=== PATIENT | female | born 1995 | race Hispanic/Latino ===

== ENCOUNTER 2021-03-24 21:20 | Emergency (ER) | payer BC ==
--- OUTSIDE RECORDS SUMMARY | 2021-03-24 21:23 | XMS REPORT | Continuity of Care Document ---
:1995 Author Organization [facility] t Address [address] [place] [address] Care Team Providers Name Role Phone iAden Botello DO Attending Clinician Avila HERNANDEZ Attending Clinician Problems This patient has no known problems. Allergies, Adverse Reactions, Alerts This patient has no known allergies or adverse reactions. Medications This patient has no known medications. Procedures This patient has no known procedures. Encounters Start End Encounter Admission Attending Care Care Encounter Source Date/Time Date/Time Type Type Clinicians Facility Department ID 2021-02-12 2021-02-12 Patient WERO Botello [id number] 00:00:00 00:00:00 Outreach Tray FITZGERALD [id number] Aiden [facility] [id number] P[facility] [id number] 2021-01-16 2021-01-16 Office WERO Gramajo [id number] 09:54:49 10:24:49 Visit Anbael Leger [id number] [place] [id number] [facility] [id number] [address] Results This patient has no known results.
[2021-03-24] MEDS ORDERED: ACETAMINOPHEN 500 MG TAB ONE (23:31)
[2021-03-25 00:28] LABS: SARS-COV-2 RT PCR NEGATIVE (NEGATIVE)
--- NOTE | 2021-03-25 00:35 | ER ---
Nurse's Notes [facility] Name: Abebe Pittman Age: 26 yrs Sex: Female : 1995 Arrival Date: 03/24/2021 Time: 21:24 Bed 30 Private MD: Diagnosis: Acute upper respiratory infection, unspecified Presentation: 03/24 21:30 Chief complaint: Patient states: cough, sneezing, sore throat, chills, body ache, ca1 headache, nausea x 4 days. Coronavirus screen: Client denies travel out of the [place] in the last 14 days. chills, congestion, cough unrelated to allergies, fatigue, headache, muscle pain, nausea, runny nose, sore throat, Client presents with at least one sign or symptom that may indicate coronavirus-19. Standard/surgical mask placed on the client. Provider contacted for isolation considerations. Ebola Screen: Patient negative for fever greater than or equal to 101.5 degrees Fahrenheit, and additional compatible Ebola Virus Disease symptoms Patient denies exposure to infectious person. Patient denies travel to an Ebola-affected area in the 21 days before illness onset. No symptoms or risks identified at this time. Initial Sepsis Screen: Does the patient meet any 2 criteria? No. Patient's initial sepsis screen is negative. Does the patient have a suspected source of infection? No. Patient's initial sepsis screen is negative. Risk Assessment: Do you want to hurt yourself or someone else? Patient reports no desire to harm self or others. Onset of symptoms was March 24, 2021. 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 Flu vaccine is not up to date. - Social history:: Smoking status: Patient denies any tobacco usage or history of. Screenin:21 Abuse screen: Denies threats or abuse. Denies injuries from another. Nutritional iw screening: No deficits noted. Tuberculosis screening: No symptoms or risk factors identified. Fall Risk None identified. Assessment: 22:20 General: Appears in no apparent distress. Behavior is calm, cooperative. General: iw Reports fatigue for. Pain: Complains of pain in head. Neuro: Level of Consciousness is awake, alert, obeys commands, Oriented to person, place, time, situation, Moves all extremities. Cardiovascular: Patient's skin is warm and dry. Respiratory: Reports cough that is Respiratory effort is even, unlabored, Respiratory pattern is regular, symmetrical. GI: Abdomen is non-distended, Reports nausea. Derm: Skin is intact, is healthy with good turgor. Musculoskeletal: Range of motion: intact in all extremities. Vital Signs: 21:30 BP 127 / 87; Pulse 82; Resp 16 S; Temp 97.3(TE); Pulse Ox 99% on R/A; Weight 58.97 kg ca1 (R); Height 5 ft. 2 in. (157.48 cm) (R); Pain 6/10; 21:30 Body Mass Index 23.78 (58.97 kg, 157.48 cm) ca1 ED Course: 21:24 Patient arrived in ED. bp1 21:32 Triage completed. ca1 21:32 Arm band placed on. ca1 21:45 Strep Sent. ca1 22:20 Hanane Tompkins RN is Primary Nurse. iw 23:09 Simba Buckley NP is PHCP. pm1 23:09 Louie Reynolds MD is Attending Physician. pm1 05 00:52 Patient has correct armband on for positive identification. rv 00:52 No provider procedures requiring assistance completed. Patient did not have IV access rv during this emergency room visit. Administered Medications: 03/24 23:24 Drug: Tylenol 1000 mg Route: PO; rr5 23:50 Follow up: Response: No adverse reaction iw Outcome: 05 00:34 Discharge ordered by . pm1 00:52 Discharged to home ambulatory. rv 00:52 Condition: good 00:52 Discharge instructions given to patient, Instructed on discharge instructions, follow up and referral plans. Demonstrated understanding of instructions, follow-up care. 00:53 Patient left the ED. rv Signatures: Hanane Tompkins RN RN iw Simba Buckley NP CARDIAC CATHETERIZATION TECHNICIAN pm1 Joseph Nuñez RN RN rv Mark Stafford RN RN rr5 Fanny Frazier RN RN ca1 Mandy Pelletier [facility] Corrections: (The following items were deleted from the chart) 03/24 22: 21:45 Influenza Screen (A \T\ B)+BA.HENRRY.RUDDY drawn and sent. ca1 EDMS : 21:45 CORONAVIRUS+MR.LAB.RUDDY drawn and sent. ca1 EDMS
--- NOTE | 2021-03-25 00:35 | EDPHYS ---
Physician Documentation [facility] Name: Abebe Pittman Age: 26 yrs Sex: Female : 1995 Arrival Date: 03/24/2021 Time: 21:24 Bed 30 Private MD: ED Physician Louie Reynolds HPI: 03/24 23:47 This 26 yrs old Female presents to ER via Ambulatory with complaints of pm1 Nausea, Headache, Sore Throat, Cough. 23:47 The patient presents to the emergency department with nausea. Onset: The pm1 symptoms/episode began/occurred 4 day(s) ago. Possible causes: unknown. The symptoms are aggravated by nothing. The symptoms are alleviated by nothing. Associated signs and symptoms: Pertinent positives: nausea, runny nose, Pertinent negatives: constipation, dysuria, fever. Severity of symptoms: in the emergency department the symptoms are worse. The patient has not experienced similar symptoms in the past. The patient has not recently seen a physician. 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 Flu vaccine is not up to date. - Social history:: Smoking status: Patient denies any tobacco usage or history of. ROS: 23:47 Eyes: Negative for injury, pain, redness, and discharge. pm1 23:47 Neck: Negative for injury, pain, and swelling, Cardiovascular: Negative for chest pain, palpitations, and edema. 23:47 Back: Negative for injury and pain, MS/Extremity: Negative for injury and deformity, Skin: Negative for injury, rash, and discoloration. 23:47 Constitutional: Positive for body aches, Negative for fever, poor PO intake. 23:47 ENT: Positive for sore throat, Negative for drainage from ear(s), ear pain. 23:47 Respiratory: Positive for cough, Negative for shortness of breath, wheezing. 23:47 Abdomen/GI: Positive for nausea, Negative for abdominal pain, diarrhea, constipation. 23:47 Neuro: Positive for headache, Negative for numbness, tingling. Exam: 23:47 Constitutional: This is a well developed, well nourished patient who is awake, alert, pm1 and in no acute distress. Head/Face: Normocephalic, atraumatic. 23:47 Back: No spinal tenderness. No costovertebral tenderness. Full range of motion. Skin: Warm, dry with normal turgor. Normal color with no rashes, no lesions, and no evidence of cellulitis. MS/ Extremity: Pulses equal, no cyanosis. Neurovascular intact. Full, normal range of motion. 23:47 Cardiovascular: Exam negative for acute changes, Rate: normal, Rhythm: regular, Pulses: no pulse deficits are appreciated. 23:47 Respiratory: Exam negative for acute changes, respiratory distress, shortness of breath, Breath sounds: are clear throughout. 23:47 Abdomen/GI: Exam negative for acute changes, Inspection: abdomen appears normal, Palpation: abdomen is soft and non-tender, in all quadrants. 23:47 Neuro: Exam negative for acute changes, Orientation: is normal, Mentation: is normal, Motor: is normal, moves all fours. Vital Signs: 21:30 BP 127 / 87; Pulse 82; Resp 16 S; Temp 97.3(TE); Pulse Ox 99% on R/A; Weight 58.97 kg ca1 (R); Height 5 ft. 2 in. (157.48 cm) (R); Pain 6/10; 21:30 Body Mass Index 23.78 (58.97 kg, 157.48 cm) ca1 MDM: 23:28 Patient medically screened. pm1 23:51 Data reviewed: vital signs. Data interpreted: Pulse oximetry: on room air is 99 %. pm1 Interpretation: normal. 03/25 00:33 Counseling: I had a detailed discussion with the patient and/or guardian regarding: the pm1 historical points, exam findings, and any diagnostic results supporting the discharge/admit diagnosis, lab results, the need for outpatient follow up, to return to the emergency department if symptoms worsen or persist or if there are any questions or concerns that arise at home. 00:35 ED course: Patient refused any medications because her 9 month old is exclusively pm1 breast feed. No medication options and for nausea and cough that do not go into breast milk. 03/24 21:34 Order name: Strep; Complete Time: 00:00 ca1 03/25 00:17 Order name: Throat Culture EDNM 03/25 00:28 Order name: COVID-19/FLU A+B; Complete Time: 00:30 EDNM Administered Medications: 03/24 23:24 Drug: Tylenol 1000 mg Route: PO; rr5 23:50 Follow up: Response: No adverse reaction iw Disposition: 03/25 06:09 Co-signature as Attending Physician, Louie Reynolds MD. [facility] Disposition: 03/25/21 00:34 Discharged to Home. Impression: Acute upper respiratory infection, unspecified. - Condition is Stable. - Discharge Instructions: Upper Respiratory Infection, Adult, Viral Respiratory Infection. - Family Work Release, Medication Reconciliation Form, Thank You Letter, Antibiotic Education, Prescription Opioid Use form. - Follow up: Emergency Department; When: As needed; Reason: Worsening of condition. Follow up: Private Physician; When: 2 - 3 days; Reason: Recheck today's complaints, Continuance of care, Re-evaluation by your physician. - Problem is new. - Symptoms have improved. Signatures: Dispatcher [employer] [facility] Simba Buckley, YARI TRAFFIC MONITOR SPECIALIST pm1 Joseph Nuñez, RN RN rv Mark Stafford RN RN rr5 Fanny Frazier RN RN ca1 Louie Reynolds MD MD [facility] Hanane Tompkins RN Corrections: (The following items were deleted from the chart) 03/24 22:27 21:34 Influenza Screen (A \T\ B)+BA.LAB.BRZ ordered. [facility] 22:28 21:34 CORONAVIRUS+MR.LAB.BRZ ordered. [facility] 03/25 00:53 00:34 03/25/2021 00:34 Discharged to Home. Impression: Acute upper respiratory rv infection, unspecified. Condition is Stable. Forms are Medication Reconciliation Form, Thank You Letter, Antibiotic Education, Prescription Opioid Use. Follow up: Emergency Department; When: As needed; Reason: Worsening of condition. Follow up: Private Physician; When: 2 - 3 days; Reason: Recheck today's complaints, Continuance of care, Re-evaluation by your physician. Problem is new. Symptoms have improved. pm1
[2021-03-25 01:15] VITALS: BP 127/87; TEMP 97.3; O2SAT 99
== END 2021-03-25 00:53 | disposition home or self-care (01) ==
LOC: ER 21:20
DX: J06.9 Acute upper respiratory infection, unspecified (principal); Z20.822 Contact with and (suspected) exposure to COVID-19
CPT/HCPCS: 87070; 87081; 0240U; 99283

== ENCOUNTER 2021-09-29 20:14 | Emergency (ER) | payer BC ==
[2021-09-29] MEDS ORDERED: IBUPROFEN 400 MG TAB ONE (20:30)
--- NOTE | 2021-09-29 20:54 | ER ---
Nurse's Notes [facility] Name: Abebe Whitehead Age: 26 yrs Sex: Female : 1995 Arrival Date: 09/29/2021 Time: 20:19 Bed Waiting Private MD: Diagnosis: Sprain of ankle Presentation: 09/29 20:25 Chief complaint: Patient states: earlier today approx 1300 she tripped and rolled her bb right ankle and scraped her left knee now having pain from right ankle up to right knee. Coronavirus screen: At this time, the client does not indicate any symptoms associated with coronavirus-19. Ebola Screen: No symptoms or risks identified at this time. Initial Sepsis Screen: Does the patient meet any 2 criteria? No. Patient's initial sepsis screen is negative. Does the patient have a suspected source of infection? No. Patient's initial sepsis screen is negative. Risk Assessment: Do you want to hurt yourself or someone else? Patient reports no desire to harm self or others. Onset of symptoms was September 29, 2021. 20:25 Method Of Arrival: Wheelchair bb 20:25 Acuity: SHERIDAN 4 bb Triage Assessment: 20:27 General: Appears in no apparent distress. uncomfortable, Behavior is calm, cooperative. bb Pain: Complains of pain in right leg Pain currently is 6 out of 10 on a pain scale. Neuro: Level of Consciousness is awake, alert, obeys commands, Oriented to person, place, time, situation. Cardiovascular: Capillary refill < 3 seconds Patient's skin is warm and dry. Respiratory: Respiratory effort is even, unlabored, Respiratory pattern is regular. GI: No signs and/or symptoms were reported involving the gastrointestinal system. Derm: Skin is pink, warm \T\ dry. Musculoskeletal: Circulation, motion, and sensation intact. Reports pain in right leg. 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 - Social history:: Smoking status: Patient denies any tobacco usage or history of. Screenin:12 Abuse screen: Denies threats or abuse. Nutritional screening: No deficits noted. bb Tuberculosis screening: No symptoms or risk factors identified. Fall Risk Fall in past 12 months (25 points). No IV (0 pts). Ambulatory Aid- Crutches/Cane/Walker (15 pts). Gait- Impaired (20 pts.). Mental Status- Oriented to own ability (0 pts). Total Anand Fall Scale indicates High Risk Score (45 or more points). Fall prevention measures have been instituted. As available patient and family educated on Fall Prevention Program and Strategies. Assessment: 21:11 Reassessment: No changes from previously documented assessment. Patient is alert, bb oriented x 3, equal unlabored respirations, skin warm/dry/pink. pt verbalized understanding of and agrees to plan of care discharge instructions given pt demonstrated good technique with crutches and assisted to exit via wheelchair accompanied by RN. Vital Signs: 20:25 BP 103 / 74; Pulse 74; Resp 16 S; Temp 98.4(O); Pulse Ox 100% on R/A; Weight 63.5 kg bb (R); Height 5 ft. 2 in. (157.48 cm) (R); Pain 6/10; 21:12 BP 113 / 72; Pulse 85; Resp 16 S; Temp 98.2(TE); Pulse Ox 96% on R/A; Pain 4/10; bb 20:25 Body Mass Index 25.61 (63.50 kg, 157.48 cm) bb ED Course: 20:19 Patient arrived in ED. wm 20:25 Nikos Linda PA is PHCP. jmm 20:25 Louie Reynolds MD is Attending Physician. jmm 20:27 Triage completed. bb 20:27 Arm band placed on Patient placed in waiting room, Patient notified of wait time. X-ray bb ordered. 20:[address] MD is Referral Physician. jmm 20:59 XRAY Ankle RIGHT 3 view In Process Unspecified. EDMS 20:59 Foot Right 3 View XRAY In Process Unspecified. EDMS 21:12 Patient has correct armband on for positive identification. bb 21:12 No provider procedures requiring assistance completed. Patient did not have IV access bb during this emergency room visit. Administered Medications: 20:30 Drug: Motrin (ibuprofen) 800 mg Route: PO; bb 21:14 Follow up: Response: Pain is decreased bb Outcome: 20:53 Discharge ordered by . franck 21:12 Discharged to home via wheelchair, with crutches. bb 21:12 Condition: stable 21:12 Discharge instructions given to patient, Instructed on discharge instructions, follow up and referral plans. medication usage, crutch walking, Demonstrated understanding of instructions, follow-up care, medications, crutch walking, Prescriptions given X 1. 21:14 Patient left the ED. bb Signatures: Dispatcher [employer] EDMS Nikos Linda PA PA jmm Ballard, Brenda, RN RN Deyanira Diaz
--- NOTE | 2021-09-29 20:55 | EDPHYS ---
Physician Documentation [facility] Name: Abebe Whitehead Age: 26 yrs Sex: Female : 1995 Arrival Date: 09/29/2021 Time: 20:19 Bed Waiting Private MD: ED Physician Louie Reynolds HPI: 09/29 20:51 This 26 yrs old Female presents to ER via Wheelchair with complaints of Fall jmm Injury - Right foot. 20:51 Onset: The symptoms/episode began/occurred acutely, today. Associated injuries: The jmm patient sustained right ankle. The patient has not experienced similar symptoms in the past. 26-year-old female with no chronic medical condition presents emerged department after tripping on her shoe and rolling her right ankle. Patient states that she felt a pop. Patient denies hitting her head or injure any other part of her body.. 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 - Social history:: Smoking status: Patient denies any tobacco usage or history of. ROS: 20:51 Constitutional: Negative for fever, chills, and weight loss, Cardiovascular: Negative jmm for chest pain, palpitations, and edema, Respiratory: Negative for shortness of breath, cough, wheezing, and pleuritic chest pain. 20:51 MS/extremity: Positive for injury or acute deformity, pain. 20:51 All other systems are negative. Exam: 20:51 Constitutional: This is a well developed, well nourished patient who is awake, alert, jmm and in no acute distress. Head/Face: atraumatic. Eyes: EOMI, no conjunctival erythema appreciated ENT: Moist Mucus Membranes Neck: Trachea midline, Supple Chest/axilla: Normal chest wall appearance and motion. Cardiovascular: Regular rate and rhythm. No edema appreciated Respiratory: Normal respirations, no respiratory distress appreciated Abdomen/GI: Non distended, soft Back: Normal ROM Skin: General appearance color normal 20:51 Musculoskeletal/extremity: ROM: Painful range of motion noted to the right ankle, pain appreciated at the base of the fifth metatarsal, compartments are soft, full dorsalis pulse appreciated, neurovascular intact. 20:51 Skin: Appearance: Color: normal in color. 20:51 Neuro: Orientation: is normal, Mentation: is normal, Memory: is normal. 20:51 Psych: Behavior/mood is pleasant, cooperative. Vital Signs: 20:25 BP 103 / 74; Pulse 74; Resp 16 S; Temp 98.4(O); Pulse Ox 100% on R/A; Weight 63.5 kg bb (R); Height 5 ft. 2 in. (157.48 cm) (R); Pain 6/10; 21:12 BP 113 / 72; Pulse 85; Resp 16 S; Temp 98.2(TE); Pulse Ox 96% on R/A; Pain 4/10; bb 20:25 Body Mass Index 25.61 (63.50 kg, 157.48 cm) bb MDM: 20:53 Data reviewed: vital signs, nurses notes. Counseling: I had a detailed discussion with [facility] the patient and/or guardian regarding: the historical points, exam findings, and any diagnostic results supporting the discharge/admit diagnosis, radiology results, the need for outpatient follow up, to return to the emergency department if symptoms worsen or persist or if there are any questions or concerns that arise at home. 20:53 Patient medically screened. [facility] 09/29 20:29 Order name: XRAY Ankle RIGHT 3 view; Complete Time: 21:36 09/29 20:32 Order name: Foot Right 3 View XRAY; Complete Time: 21:36 [facility] 09/29 20:50 Order name: Russell wrap-joint; Complete Time: 21:14 [facility] 09/29 20:50 Order name: Crutches; Complete Time: 21:14 [facility] Administered Medications: 20:30 Drug: Motrin (ibuprofen) 800 mg Route: PO; bb 21:14 Follow up: Response: Pain is decreased bb Disposition: 22:37 Co-signature as Attending Physician, Louie Reynolds MD. [email or web address] Disposition Summary: 09/29/21 20:53 Discharge Ordered Location: Home [facility] Condition: Stable [facility] Diagnosis - Sprain of ankle [facility] Followup: [facility] - With: Berny Street MD - When: 2 - 3 days - Reason: Recheck today's complaints, Continuance of care, Re-evaluation by your physician Discharge Instructions: - Discharge Summary Sheet franck - Ankle Sprain franck Forms: - Medication Reconciliation Form franck - Thank You Letter franck - Antibiotic Education franck - Prescription Opioid Use franck Prescriptions: - Ibuprofen 800 mg Oral Tablet - take 1 tablet by ORAL route every 8 hours As needed take with food; 30 tablet; [facility] Refills: 0, Product Selection Permitted - orphenadrine citrate 100 mg Oral Tablet Sustained Release - take 1 tablet by ORAL route 2 times per day As needed; 20 tablet; Refills: 0, [facility] Product Selection Permitted Signatures: Dispatcher [employer] EDNikos Newman PA PA jmm Ballard, Brenda, RN RN Louie Conley MD MD [email or web address]
--- NOTE | 2021-09-29 21:12 | RAD REPORT ---
EXAM DESCRIPTION: RAD - Ankle Right 3 View - 09/29/2021 8:59 pm CLINICAL HISTORY: Right ankle pain status post fall FINDINGS: No fracture or dislocation is seen.
--- NOTE | 2021-09-29 21:13 | RAD REPORT ---
EXAM DESCRIPTION: RAD - Foot Right 3 View - 09/29/2021 8:59 pm CLINICAL HISTORY: Right foot pain status post injury FINDINGS: No fracture or dislocation is seen
[2021-09-29 21:28] VITALS: BP 113/72; TEMP 98.2; O2SAT 96
--- OUTSIDE RECORDS SUMMARY | 2021-10-05 16:02 | XMS REPORT | Continuity of Care Document ---
:1995 Author Organization [facility] t Address [address] [place] [address] Care Team Providers Name Role Phone Shiraz ROONEY III Primary Care Physician Unavailable ARI Attending Clinician Unavailable Aiden Botello DO Attending Clinician Ari HERNANDEZ Attending Clinician DOMO ZHU Attending Clinician Unavailable 2, Lab Attending Clinician Unavailable Domo Zhu MD Attending Clinician Doctor Unassigned, Name Attending Clinician Unavailable Nurse, Women's Health Attending Clinician Unavailable Only, Test Attending Clinician Unavailable Brown PAC, S Attending Clinician YVON Attending Clinician Unavailable Ultrasound, Mfm Attending Clinician Unavailable Lorenzo WALTERS R Attending Clinician DOMO ZHU Admitting Clinician Unavailable Domo Zhu MD Admitting Clinician YVON Admitting Clinician Unavailable Payers Payer Name Policy Type Policy Number Effective Date Expiration Date Marichuy ulrich [facility] [id number] 2018 00:00:00 [facility] [id number] 2019 CHOICE MEDICAID 00:00:00 Advance Directives Directive Decision Effective Termination Comments Source Date Date Healthcare Agents on N/A [facility] FileNameRelationshipHealthcare [facility] Agent Medical RelationshipCommunicationSNorth [facility] Medical Center TrejoMotherHealth Care [phone] (Mobile) Ashkan Trujillo LaneForestignificant OtherFirst Alternate Health Care [phone] (Mobile) [email or web address] Problems Condition Condition Condition Status Onset Resolution Last Treating Co mments Source Name Details Category Date Date Treatment Clinician Date Presence Presence Disease Active 2019-11 Unive rs of 52 mg of 52 mg 0-01 ity of levonorg[place] trel-relea trel-relea 00 Me dical sing sing Branch intrauteri intrauteri ne device ne device (IUD) (IUD) Mild Mild Disease Active 2020- Univers pre-eclamp pre-eclamp 7-23 it y of [place] in [place] in 00:00: [place] third third 00 Medical trimester trimester Bran ch Liveborn Liveborn Disease Active Unive rs infant, of infant, of 7-23 it y of heart heart [place] , , 00 Me dical born in born in [facility] by vaginal by vaginal delivery delivery Encounter Encounter Disease Active Uni vers for for 7-22 ity of elective elective 00:00: [place] induction induction 00 Medi maryan of labor of labor Branch Excessive Excessive Disease Active 2019- Uni vers weight weight 7-02 ity of gain gain 00:00: [place] during during 00 Medical , , Br anch antepartum antepartum Chest pain Chest pain Disease Active 2020-0 U nivers 6- ity of 00:00: [place] 00 Medical Branch Elevated Elevated Disease Active 2020- Unive rs BP without BP without 6- it y of diagnosis diagnosis 00:00[place] of of 00 Medical hypertensi hypertensi Br anch on on Abnormal Abnormal Disease Active 2019- Unive rs EKG EKG 6- ity of 00:00: [place] 00 Medical Branch Chronic Chronic Disease Active 2020-0 Univers midline midline 5-06 ity of low back low back 00:00: [place] pain pain 00 Medical without without Branch sciatica sciatica 27 weeks 27 weeks Disease Active 2018-11 Unive rs gestation gestation 2-18 ity of of of 00:00: [place] 00 [facility] 11 weeks 11 weeks Disease Active 2019- Unive rs gestation gestation 2-18 ity of of of 00:00: [place] 00 [facility] Supervisio Supervisio Disease Active 2019- U nivers n of other n of other 2-18 it y of normal normal 00:00: [place] 00 [facility] 31 weeks 31 weeks Disease Active 2019- Unive rs gestation gestation 2-18 ity of of of 00:00: [place] 00 [facility] 36 weeks 36 weeks Disease Active 2019- Unive rs gestation gestation 2-18 ity of of of 00:00: [place] 00 [facility] 37 weeks 37 weeks Disease Active 2019- Unive rs gestation gestation 2-18 ity of of of 00:00: [place] 00 [facility] 39 weeks 39 weeks Disease Active 2019- Unive rs gestation gestation 2-18 ity of of of 00:00: [place] 00 [facility] 19 weeks 19 weeks Disease Active 2019- Unive rs gestation gestation 2-18 ity of of of 00:00: [place] 00 [facility] Allergies, Adverse Reactions, Alerts Allergy Allergy Status Severity Reaction(s) Onset Inactive Treating Comm ents Source Name Type Date Date Clinician NO KNOWN Drug Active Univers ALLERGIE Class ity of S [facility] Social History Social Habit Start Date Stop Date Quantity Comments Source ASSERTION 2019-09-29 [facility] 00:00:00 [facility] History of 2018-02-21 Cigarette Smoker Universi ty of tobacco use 00:00:00 [facility] Exposure to Yes University of SARS-CoV-2 [facility] (event) Branch Alcohol intake 2021-01-16 2021-01-16 Ex-drinker University 00:00:00 00:00:00 (finding) [facility] Tobacco use and 2021-01-16 2021-01-16 Never used Universit y of exposure 00:00:00 00:00:00 [facility] Tobacco Comment 2020-04-23 2020-04-23 1YR Universit y of 00:00:00 00:00:00 [facility] Sex Ass[birth year] Universit y of 00:00:00 00:00:00 [facility] Smoking Status Start Date Stop Date Source Former smoker 2021-01-16 00:00:00 2021-01-16 00:00:00 [facility] Medications Ordered Filled Start Stop Current Ordering Indication Dosage Frequency Signature Comments Components Source Medication Medication Date Date Medication? Clinician (SIG) Name Name levonorgest Yes 1{devic 1 Device Univers reL 2-24 e} by ity of (MIRENA) 20 16:06: Intrauteri [place] mcg/24 14 ne route Medical hours (5 once now. Branch yrs) 52 mg IUD levonorgest Yes 1{devic 1 Device Univers reL 2-24 e} by ity of (MIRENA) 20 16:06: Intrauteri [place] mcg/24 14 ne route Medical hours (5 once now. Branch yrs) 52 mg IUD levonorgest Yes 1{devic 1 Device Univers reL 2-24 e} by ity of (MIRENA) 20 16:06: Intrauteri [place] mcg/24 14 ne route Medical hours (5 once now. Branch yrs) 52 mg IUD levonorgest 2019-11 2020- No 1{devic Un [place] reL 0-01 10-01 e} ity of (MIRENA) 20:45: 19:39 [place] IUD 1 00 :00 [employer] Branch levonorgest 2019-11 2020- No 1{devic 1 Device, Univers reL 0-01 10-01 e} Intrauteri ity of (MIRENA) 20:45: 19:39 ne, ONCE, [place] IUD 1 00 :00 1 dose, [employer] [facility] 08/23/20 at 1545, Routine levonorgest 2019-11 2020- No 1{devic Un [place] reL 0-01 10-01 e} ity of (MIRENA) 20:45: 19:39 [place] IUD 1 00 :00 [employer] Branch levonorgest 2019-11 2020- No 1{devic 1 Device, Univers reL 0-01 10-01 e} Intrauteri ity of (MIRENA) 20:45: 19:39 ne, ONCE, [place] IUD 1 00 :00 1 dose, [employer] [facility] 08/23/20 at 1545, Routine miSOPROStoL Yes [id number] Take one Univers 200 mcg 8-24 tablet ity of tablet 00:00: night [place] 00 before Medical procedure, Branch then take one tablet morning of procedure miSOPROStoL 2020-0 Yes [id number] Take one Univers 200 mcg 8-24 tablet ity of tablet 00:00: night [place] 00 before Medical procedure, Branch then take one tablet morning of procedure miSOPROStoL 2019-0 Yes [id number] Take one Univers 200 mcg 8-24 tablet ity of tablet 00:00: night [place] 00 before Medical procedure, Branch then take one tablet morning of procedure miSOPROStoL 2019-0 2020- No [id number] Take one Univers 200 mcg 8-24 11-12 tablet ity of tablet 00:00: 00:00 night [place] 00 :00 before Medical procedure, Branch then take one tablet morning of procedure miSOPROStoL 2019-0 2020- No [id number] Take one Univers 200 mcg 8-24 11-12 tablet ity of tablet 00:00: 00:00 night [place] 00 :00 before Medical procedure, Branch then take one tablet morning of procedure 2020- No Take by [facility] ers vit 7-24 07-24 mouth. ity of calc,iron,f 13:30: 00:00 [place] olic 19 :00 Medical ( Branch VITAMIN ORAL) 2019-0 Yes [id number] 1{tbl} Take 1 Univers vitamin 7-24 102 tablet by ity of w/FA tablet 00:00: mouth [place] 00 daily. Medical Branch docusate 2020-0 Yes [id number] 240mg Take 1 Univers calcium 240 7-24 102 capsule by it y of mg capsule 00:00: mouth once [place] 00 daily as Medical needed for Branch Constipati on. ferrous 2020-0 Yes [id number] 325mg Take 1 Univers sulfate 325 7-24 102 tablet by ity of mg (65 mg 00:00: mouth 2 [place] iron) 00 (two) Medical tablet times Branch daily. ibuprofen 2020-0 Yes [id number] 600mg Take 1 Univers 600 mg 7-24 102 tablet by ity of tablet 00:00: mouth [place] 00 every 6 Medical (six) Branch hours as needed (Pain). Take with food or milk. 2020-0 Yes [id number] 1{tbl} Take 1 Univers vitamin 7-24 102 tablet by ity of w/FA tablet 00:00: mouth [place] 00 daily. Medical Branch docusate 2020-0 Yes [id number] 240mg Take 1 Univers calcium 240 7-24 102 capsule by it y of mg capsule 00:00: mouth once [place] 00 daily as Medical needed for Branch Constipati on. ferrous 2020-0 Yes [id number] 325mg Take 1 Univers sulfate 325 7-24 102 tablet by ity of mg (65 mg 00:00: mouth 2 [place] iron) 00 (two) Medical tablet times Branch daily. ibuprofen 2020-0 Yes [id number] 600mg Take 1 Univers 600 mg 7-24 102 tablet by ity of tablet 00:00: mouth [place] 00 every 6 Medical (six) Branch hours as needed (Pain). Take with food or milk. 2020-0 Yes [id number] 1{tbl} Take 1 Univers vitamin 7-24 102 tablet by ity of w/FA tablet 00:00: mouth [place] 00 daily. Medical Branch docusate 2020-0 Yes [id number] 240mg Take 1 Univers calcium 240 7-24 102 capsule by it y of mg capsule 00:00: mouth once [place] 00 daily as Medical needed for Branch Constipati on. ferrous 2020-0 Yes [id number] 325mg Take 1 Univers sulfate 325 7-24 102 tablet by ity of mg (65 mg 00:00: mouth 2 [place] iron) 00 (two) Medical tablet times Branch daily. ibuprofen 2020-0 Yes [id number] 600mg Take 1 Univers 600 mg 7-24 102 tablet by ity of tablet 00:00: mouth [place] 00 every 6 Medical (six) Branch hours as needed (Pain). Take with food or milk. 2020-0 Yes [id number] 1{tbl} Take 1 Univers vitamin 7-24 102 tablet by ity of w/FA tablet 00:00: mouth [place] 00 daily. Medical Branch docusate 2020-0 Yes [id number] 240mg Take 1 Univers calcium 240 7-24 102 capsule by it y of mg capsule 00:00: mouth [place] 00 daily as Medical needed for Branch Constipati on. ferrous 2020-0 Yes [id number] 325mg Take 1 Univers sulfate 325 7-24 102 tablet by ity of mg (65 mg 00:00: mouth 2 [place] iron) 00 (two) Medical tablet times Branch daily. ibuprofen 2020-0 Yes [id number] 600mg Take 1 Univers 600 mg 7-24 102 tablet by ity of tablet 00:00: mouth [place] 00 every 6 Medical (six) Branch hours as needed (Pain). Take with food or milk. 2019-0 Yes [id number] 1{tbl} Take 1 Univers vitamin 7-24 102 tablet by ity of w/FA tablet 00:00: mouth [place] 00 daily. Medical Branch docusate 2019-0 Yes [id number] 240mg Take 1 Univers calcium 240 7-24 102 capsule by it y of mg capsule 00:00: mouth once [place] 00 daily as Medical needed for Branch Constipati on. ferrous 2019-0 Yes [id number] 325mg Take 1 Univers sulfate 325 7-24 102 tablet by ity of mg (65 mg 00:00: mouth 2 [place] iron) 00 (two) Medical tablet times Branch daily. ibuprofen 0 Yes [id number] 600mg Take 1 Univers 600 mg 7-24 102 tablet by ity of tablet 00:00: mouth [place] 00 every 6 Medical (six) Branch hours as needed (Pain). Take with food or milk. 0 Yes [id number] 1{tbl} Take 1 Univers vitamin 7-24 102 tablet by ity of w/FA tablet 00:00: mouth [place] 00 daily. Medical Branch 2019-0 Yes [id number] 1{tbl} Take 1 Univers vitamin 7-24 102 tablet by ity of w/FA tablet 00:00: mouth [place] 00 daily. Medical Branch 2019-0 Yes [id number] 1{tbl} Take 1 Univers vitamin 7-24 102 tablet by ity of w/FA tablet 00:00: mouth [place] 00 daily. Medical Branch 2020-0 Yes [id number] 1{tbl} Take 1 Univers vitamin 7-24 102 tablet by ity of w/FA tablet 00:00: mouth [place] 00 daily. Medical Branch 2020-0 Yes [id number] 1{tbl} Take 1 Univers vitamin 7-24 102 tablet by ity of w/FA tablet 00:00: mouth [place] 00 daily. Medical Branch 2019-0 Yes [id number] 1{tbl} Take 1 Univers vitamin 7-24 102 tablet by ity of w/FA tablet 00:00: mouth [place] 00 daily. Medical Branch docusate 2019-0 2020- No [id number] 240mg Take 1 Univers calcium 240 06-15 102 capsule by i ty of mg capsule 00:00: 00:00 mouth once [place] 00 :00 daily as Medical needed for Branch Constipati on. ferrous 2019- No [id number] 325mg Take 1 Univers sulfate 325 06-15 102 tablet by it y of mg (65 mg 00:00: 00:00 mouth 2 [place] iron) 00 :00 (two) Medical tablet times Branch daily. ibuprofen 2019- No [id number] 600mg Take 1 Univers 600 mg 06-15 102 tablet by ity of tablet 00:00: 00:00 mouth [place] 00 :00 every 6 Medical (six) Branch hours as needed (Pain). Take with food or milk. docusate 2019- No [id number] 240mg Take 1 Univers calcium 240 06-15 102 capsule by i ty of mg capsule 00:00: 00:00 mouth once [place] 00 :00 daily as Medical needed for Branch Constipati on. ferrous 2019- No [id number] 325mg Take 1 Univers sulfate 325 06-15 102 tablet by it y of mg (65 mg 00:00: 00:00 mouth 2 [place] iron) 00 :00 (two) Medical tablet times Branch daily. ibuprofen 2019- No [id number] 600mg Take 1 Univers 600 mg 06-15 102 tablet by ity of tablet 00:00: 00:00 mouth [place] 00 :00 every 6 Medical (six) Branch hours as needed (Pain). Take with food or milk. rho(D) Yes 300ug 300 mcg, Univer s immune 06-14 Intramuscu ity of globulin 19:58: [place], ONCE, [place] (RHOGAM) 37 For 1 Medical syringe 300 dose, Branch mcg Conditiona l, Routine HYDROcodone Yes 1{tbl} 1 tablet, Univers -acetaminop 06-14 Oral, ity of hen (NORCO 19:58: Q6HPRN, [place] 5) 5-325 mg 32 Starting Medi maryan tablet 1 [place] Branch tablet 06/14/20 at 1458, Until Discontinu ed, Routine, Pain (scale 7-10) ibuprofen Yes 600mg 600 mg, Univ ers (IBU) 06-14 Oral, ity of tablet 600 19:58: Q6HPRN, [place] mg 32 Starting Medical [place] Branch 06/14/20 at 1458, Until Discontinu ed, Routine, Pain (scale 4-6) acetaminoph 2020-0 Yes 650mg 650 mg, Un raymond en 06-14 Oral, ity of (TYLENOL) 19:58: Q6HPRN, [place] tablet 650 32 Starting Medic al mg [place] Branch 06/14/20 at 1458, Until Discontinu ed, Routine, Pain (scale 1-3) diphenhydrA 2020-0 Yes 25mg 25 mg, Univ ers MINE 06-14 Oral, ity of (BENADRYL) 19:58: Q6HPRN, [place] tablet 25 32 Starting Medica l mg [place] Branch 06/14/20 at 1458, Until Discontinu ed, Routine, Sleep, Itching ondansetron 2020-0 Yes 4mg 4 mg, Slow Univers (ZOFRAN 06-14 IV Push, ity of (PF)) 19:58: Q8HPRN, [place] injection 4 32 Starting Medi maryan mg [place] 06/14/20 at 1458, Until Discontinu ed, Routine, Nausea and Vomiting (N/V) simethicone 2020-0 Yes 160mg 160 mg, Un raymond (GAS RELIEF 06-14 Oral, ity of (SIMETHICON 19:58: PC+HSPRN, [place] E)) 32 Starting Medical chewable [place] tablet 160 06/14/20 at mg 1458, Until Discontinu ed, Routine, Gas docusate 2020-0 Yes 240mg 240 mg, Unive rs calcium 06-14 Oral, ity of (SURFAK) 19:58: QDAILYPRN, [place] capsule 240 32 Starting Medi maryan mg [place] 06/14/20 at 1458, Until Discontinu ed, Routine, Constipati on magnesium 2020-0 Yes 30mL 30 mL, Univer s hydroxide 06-14 Oral, ity of (MILK OF 19:58: QDAILYPRN, [place] MAGNESIA) 32 Starting Medica l 400 mg/5 mL [place] Branch suspension 06/14/20 at 30 mL 1458, Until Discontinu ed, Routine, Constipati on benzocaine- 2020-0 Yes Topical, Un [place] menthol 06-14 PRN, ity of (DERMOPLAST 19:58: [place] ) 20-0.5 % 32 [place] Medical topical 06/14/20 at Branch spray 1458, Until Discontinu ed, Routine, Perineum discomfort D5W-LR IV 2019- No 1000mL at 125 Uni vers infusion 06-14 mL/hr, IV ity o f 1,000 mL 09:15: 19:58 Infusion, [place] 00 :38 CONTINUOUS Medical , Starting Branch [place] 06/14/20 at 0415, Until [place] 06/14/20 at 1458, Routine FENTanyl PF 2019- No 75ug 75 mcg, Un raymond (SUBLIMAZE 06-14 Slow IV ity o f (PF)) 09:07: 19:58 Push, [place] injection 52 :38 Q1HPRN, Medical 75 mcg Starting Branch [facility] 06/14/20 at 0407, Until [place] 06/14/20 at 1458, Routine, contractio n pain without an epidural and SVE < 8 cm and Cat I strip proMETHazin 2019- No 25mg 25 mg, IV Univers e 06-1423 Piggyback, ity of (PHENERGAN) 09:07: 19:58 Q4HPRN, [place] 25 mg in 52 :38 Starting Medical NaCl 0.9% [place] Branch (NS) 50 mL 06/14/20 at IV 0407, piggyback Until [place] 06/14/20 at 1458, Routine, Nausea and Vomiting (N/V) LR 1000 mL 2019- No 2mU/min at 6-120 Univers + oxytocin 06-14 mL/hr, IV ity of 20 units IV 09:07: 19:58 Infusion, [place] Solution 52 :38 TITRATE, Medical Starting Branch [facility] 06/14/20 at 0407, Until [place] 06/14/20 at 1458, ASHKAN lactated 2019- No 500mL at 999 Unive rs ringers IV 06-14 mL/hr, 500 it y of infusion 09:07: 19:58 mL, IV [place] 500 mL 52 :38 Infusion, Medical PRN - SEE Branch INSTRUCTIO NS, Starting [facility] 06/14/20 at 0407, Until [place] 06/14/20 at 1458, Routine 2020-0 Yes Take by Unive rs vit 7-02 mouth. ity of calc,iron,f 15:21: [address] ( Branch VITAMIN ORAL) 2020-0 Yes Take by Unive rs vit 7-02 mouth. ity of calc,iron,f 15:21: [address] ( Branch VITAMIN ORAL) 2020-0 Yes Take by Unive rs vit 7-02 mouth. ity of calc,iron,f 15:21: [address] ( Branch VITAMIN ORAL) 2020-0 Yes Take by Unive rs vit 7-02 mouth. ity of calc,iron,f 15:21: [address] ( Branch VITAMIN ORAL) 2020-0 Yes Take by Unive rs vit 7-02 mouth. ity of calc,iron,f 15:21: [address] ( Branch VITAMIN ORAL) 2020-0 Yes Take by Unive rs vit 7-02 mouth. ity of calc,iron,f 15:21: [address] ( Branch VITAMIN ORAL) 2020-0 Yes Take by Unive rs vit 7-02 mouth. ity of calc,iron,f 15:21: [address] ( Branch VITAMIN ORAL) 2020-0 Yes Take by Unive rs vit 7-02 mouth. ity of calc,iron,f 15:21: [address] ( Branch VITAMIN ORAL) 2020-0 Yes Take by Unive rs vit 7-02 mouth. ity of calc,iron,f 15:21: [address] ( Branch VITAMIN ORAL) famotidine 2020- No 20mg 20 mg, Univ ers (PEPCID AC) 04-30- Oral, ity of tablet 20 02:30: 01:41 ONCE, 1 [place] mg 00 :00 dose, [facility] 04/29/20 at Branch 2130, ASHKAN acetaminoph 2020- No 975mg 975 mg, U nivers en 04-30-08 Oral, ity of (TYLENOL) 02:30: 01:36 ONCE, 1 [place] tablet 975 00 :00 dose, [facility] maryan mg 04/29/20 at Branch 2130, Routine 2019-0 Yes Take by Unive rs vit 6-02 mouth. ity of calc,iron,f 19:49: [address] ( Branch VITAMIN ORAL) 2020-0 Yes Take by Unive rs vit 6-02 mouth. ity of calc,iron,f 19:49: [address] ( Branch VITAMIN ORAL) 2020-0 Yes Take by Unive rs vit 6-02 mouth. ity of calc,iron,f 19:49: [address] ( Branch VITAMIN ORAL) 2020-0 Yes Take by Unive rs vit 6-02 mouth. ity of calc,iron,f 19:49: [address] ( Branch VITAMIN ORAL) 2020-0 Yes Take by Unive rs vit 6-02 mouth. ity of calc,iron,f 19:49: [address] ( Branch VITAMIN ORAL) 2019- Yes Take by Unive rs vit 2-05 mouth. ity of calc,iron,f 15:38: [address] ( Branch VITAMIN ORAL) 2019- Yes Take by Unive rs vit 2-05 mouth. ity of calc,iron,f 15:38: [address] ( Branch VITAMIN ORAL) 2019- Yes Take by Unive rs vit 2-05 mouth. ity of calc,iron,f 15:38: [address] ( Branch VITAMIN ORAL) 2019- Yes Take by Unive rs vit 2-05 mouth. ity of calc,iron,f 15:38: [address] ( Branch VITAMIN ORAL) 2019- Yes Take by Unive rs vit 2-05 mouth. ity of calc,iron,f 15:38: [place] [address] Medical ( Branch VITAMIN ORAL) 2019- Yes Take by Unive rs vit 2-05 mouth. ity of calc,iron,f 15:38: [place] [address] Medical ( Branch VITAMIN ORAL) 2019- Yes Take by Unive rs vit 2-05 mouth. ity of calc,iron,f 15:38: [address] ( Branch VITAMIN ORAL) 2019- Yes Take by Unive rs vit 2-05 mouth. ity of calc,iron,f 15:38: [address] ( Branch VITAMIN ORAL) 2019- Yes Take by Unive rs vit 2-05 mouth. ity of calc,iron,f 15:38: [address] ( Branch VITAMIN ORAL) 2019- Yes Take by Unive rs vit 2-05 mouth. ity of calc,iron,f 15:38: [address] ( Branch VITAMIN ORAL) 2019- Yes Take by Unive rs vit 2-05 mouth. ity of calc,iron,f 15:38: [address] ( Branch VITAMIN ORAL) 2019- Yes Take by Unive rs vit 2-05 mouth. ity of calc,iron,f 15:38: [address] ( Branch VITAMIN ORAL) 2019- Yes Take by Unive rs vit 2-05 mouth. ity of calc,iron,f 15:38: [address] ( Branch VITAMIN ORAL) 2019- Yes Take by Unive rs vit 2-05 mouth. ity of calc,iron,f 15:38: [address] ( Branch VITAMIN ORAL) 2019- Yes Take by Unive rs vit 2-05 mouth. ity of calc,iron,f 15:38: [address] ( Branch VITAMIN ORAL) 2019- Yes Take by Unive rs vit 2-05 mouth. ity of calc,iron,f 15:38: [address] ( Branch VITAMIN ORAL) 2019- Yes Take by Unive rs vit 2-05 mouth. ity of calc,iron,f 15:38: [address] ( Branch VITAMIN ORAL) 2019- Yes Take by Unive rs vit 2-05 mouth. ity of calc,iron,f 15:38: [address] ( Branch VITAMIN ORAL) 2019- Yes Take by Unive rs vit 2-05 mouth. ity of calc,iron,f 15:38: [address] ( Branch VITAMIN ORAL) 2019- Yes Take by Unive rs vit 2-05 mouth. ity of calc,iron,f 15:38: [address] ( Branch VITAMIN ORAL) ondansetron 2019- Yes [id number] 4mg Take 1 Univers (ZOFRAN 1-15 tablet by ity of ODT) 4 mg 00:00: mouth [place] disintegrat 00 every 8 Medic al ing tablet (eight) Branch hours as needed for Nausea and Vomiting (N/V). ondansetron 2018-11 Yes [id number] 4mg Take 1 Univers (ZOFRAN 1-15 tablet by ity of ODT) 4 mg 00:00: mouth [place] disintegrat 00 every 8 Medic al ing tablet (eight) Branch hours as needed for Nausea and Vomiting (N/V). ondansetron 2018-11 Yes [id number] 4mg Take 1 Univers (ZOFRAN 1-15 tablet by ity of ODT) 4 mg 00:00: mouth [place] disintegrat 00 every 8 Medic al ing tablet (eight) Branch hours as needed for Nausea and Vomiting (N/V). ondansetron 2018-11 Yes [id number] 4mg Take 1 Univers (ZOFRAN 1-15 tablet by ity of ODT) 4 mg 00:00: mouth [place] disintegrat 00 every 8 Medic al ing tablet (eight) Branch hours as needed for Nausea and Vomiting (N/V). ondansetron 2018-11 Yes [id number] 4mg Take 1 Univers (ZOFRAN 1-15 tablet by ity of ODT) 4 mg 00:00: mouth [place] disintegrat 00 every 8 Medic al ing tablet (eight) Branch hours as needed for Nausea and Vomiting (N/V). ondansetron 2018-11 Yes [id number] 4mg Take 1 Univers (ZOFRAN 1-15 tablet by ity of ODT) 4 mg 00:00: mouth [place] disintegrat 00 every 8 Medic al ing tablet (eight) Branch hours as needed for Nausea and Vomiting (N/V). ondansetron 2018-11 Yes [id number] 4mg Take 1 Univers (ZOFRAN 1-15 tablet by ity of ODT) 4 mg 00:00: mouth [place] disintegrat 00 every 8 Medic al ing tablet (eight) Branch hours as needed for Nausea and Vomiting (N/V). ondansetron 2018-11 Yes [id number] 4mg Take 1 Univers (ZOFRAN 1-15 tablet by ity of ODT) 4 mg 00:00: mouth [place] disintegrat 00 every 8 Medic al ing tablet (eight) Branch hours as needed for Nausea and Vomiting (N/V). ondansetron 2018-11 Yes [id number] 4mg Take 1 Univers (ZOFRAN 1-15 tablet by ity of ODT) 4 mg 00:00: mouth [place] disintegrat 00 every 8 Medic al ing tablet (eight) Branch hours as needed for Nausea and Vomiting (N/V). ondansetron 2018-11 Yes [id number] 4mg Take 1 Univers (ZOFRAN 1-15 tablet by ity of ODT) 4 mg 00:00: mouth [place] disintegrat 00 every 8 Medic al ing tablet (eight) Branch hours as needed for Nausea and Vomiting (N/V). ondansetron 2018-11 Yes [id number] 4mg Take 1 Univers (ZOFRAN 1-15 tablet by ity of ODT) 4 mg 00:00: mouth [place] disintegrat 00 every 8 Medic al ing tablet (eight) Branch hours as needed for Nausea and Vomiting (N/V). ondansetron 2018-11 Yes [id number] 4mg Take 1 Univers (ZOFRAN 1-15 tablet by ity of ODT) 4 mg 00:00: mouth [place] disintegrat 00 every 8 Medic al ing tablet (eight) Branch hours as needed for Nausea and Vomiting (N/V). ondansetron 2018-11 Yes [id number] 4mg Take 1 Univers (ZOFRAN 1-15 tablet by ity of ODT) 4 mg 00:00: mouth [place] disintegrat 00 every 8 Medic al ing tablet (eight) Branch hours as needed for Nausea and Vomiting (N/V). ondansetron 2018-11 Yes [id number] 4mg Take 1 Univers (ZOFRAN 1-15 tablet by ity of ODT) 4 mg 00:00: mouth [place] disintegrat 00 every 8 Medic al ing tablet (eight) Branch hours as needed for Nausea and Vomiting (N/V). ondansetron 2018-11 Yes [id number] 4mg Take 1 Univers (ZOFRAN 1-15 tablet by ity of ODT) 4 mg 00:00: mouth [place] disintegrat 00 every 8 Medic al ing tablet (eight) Branch hours as needed for Nausea and Vomiting (N/V). ondansetron 2018-11 Yes [id number] 4mg Take 1 Univers (ZOFRAN 1-15 tablet by ity of ODT) 4 mg 00:00: mouth [place] disintegrat 00 every 8 Medic al ing tablet (eight) Branch hours as needed for Nausea and Vomiting (N/V). ondansetron 2018-11- No [id number] 4mg Take 1 Univers (ZOFRAN 1-15 05-06 tablet by ity of ODT) 4 mg 00:00: 00:00 mouth [place] disintegrat 00 :00 every 8 Medic al ing tablet (eight) Branch hours as needed for Nausea and Vomiting (N/V). ondansetron 2018-11- No [id number] 4mg Take 1 Univers (ZOFRAN 1-15 05-06 tablet by ity of ODT) 4 mg 00:00: 00:00 mouth [place] disintegrat 00 :00 every 8 Medic al ing tablet (eight) Branch hours as needed for Nausea and Vomiting (N/V). Immunizations Ordered Filled Immunization Date Status Comments [facility] e Immunization Name Name TDAP (ADACEL) 2020-03-28 Completed University of VACCINE 00:00:00 [facility] TDAP (ADACEL) 2020-03-28 Completed University of VACCINE 00:00:00 [facility] TDAP (ADACEL) 2020-03-28 Completed University of VACCINE 00:00:00 [place] [facility] TDAP (ADACEL) 2020-03-28 Completed University of VACCINE 00:00:00 [place] [facility] TDAP (ADACEL) 2020-03-28 Completed University of VACCINE 00:00:00 [facility] TDAP (ADACEL) 2020-03-28 Completed University of VACCINE 00:00:00 [place] [facility] TDAP (ADACEL) 2020-03-28 Completed University of VACCINE 00:00:00 [place] [facility] TDAP (ADACEL) 2020-03-28 Completed University of VACCINE 00:00:00 [place] [facility] TDAP (ADACEL) 2020-03-28 Completed University of VACCINE 00:00:00 [place] [facility] TDAP (ADACEL) 2020-03-28 Completed University of VACCINE 00:00:00 [place] [facility] TDAP (ADACEL) 2020-03-28 Completed University of VACCINE 00:00:00 [place] [facility] TDAP (ADACEL) 2020-03-28 Completed University of VACCINE 00:00:00 [place] [facility] TDAP (ADACEL) 2020-03-28 Completed University of VACCINE 00:00:00 [facility] TDAP (ADACEL) 2020-03-28 Completed University of VACCINE 00:00:00 [facility] TDAP (ADACEL) 2020-03-28 Completed University of VACCINE 00:00:00 [facility] TDAP (ADACEL) 2020-03-28 Completed University of VACCINE 00:00:00 [facility] TDAP (ADACEL) 2020-03-28 Completed University of VACCINE 00:00:00 [facility] TDAP (ADACEL) 2020-03-28 Completed University of VACCINE 00:00:00 [facility] TDAP (ADACEL) 2020-03-28 Completed University of VACCINE 00:00:00 [facility] TDAP (ADACEL) 2020-03-28 Completed University of VACCINE 00:00:00 [facility] TDAP (ADACEL) 2020-03-28 Completed University of VACCINE 00:00:00 [facility] TDAP (ADACEL) 2020-03-28 Completed University of VACCINE 00:00:00 [facility] TDAP (ADACEL) 2020-03-28 Completed University of VACCINE 00:00:00 [facility] TDAP (ADACEL) 2020-03-28 Completed University of VACCINE 00:00:00 [facility] TDAP (ADACEL) 2020-03-28 Completed University of VACCINE 00:00:00 [facility] TDAP (ADACEL) 2020-03-28 Completed University of VACCINE 00:00:00 [facility] TDAP (ADACEL) 2020-03-28 Completed University of VACCINE 00:00:00 [facility] TDAP (ADACEL) 2020-03-28 Completed University of VACCINE 00:00:00 [facility] TDAP (ADACEL) 2020-03-28 Completed University of VACCINE 00:00:00 [facility] Vital Signs Vital Name Observation Time Observation Value Comments Source Systolic blood 2021-01-16 16:05:00 108 mm[Hg] Univer sity of pressure [facility] Diastolic blood 2021-01-16 16:05:00 74 mm[Hg] Unive rsity of pressure [facility] Heart rate 2021-01-16 16:05:00 65 /min Universi ty [facility] Body temperature 2021-01-16 16:05:00 36.67 Kandace Univ ersity of [facility] Respiratory rate 2021-01-16 16:05:00 16 /min Univ ersity of [facility] Body height 2021-01-16 16:05:00 157.5 cm Universi ty of [facility] Body weight 2021-01-16 16:05:00 55.883 kg Universi ty of [facility] [place] [facility] BMI 2021-01-16 16:05:00 22.53 kg/m2 Universi ty of [facility] Systolic blood 2021-01-16 16:05:00 108 mm[Hg] Univer sity of pressure [facility] Diastolic blood 2021-01-16 16:05:00 74 mm[Hg] Unive rsity of pressure [facility] Heart rate 2021-01-16 16:05:00 65 /min Universi ty of [facility] Body temperature 2021-01-16 16:05:00 36.67 Kandace Univ ersity of [facility] Respiratory rate 2021-01-16 16:05:00 16 /min Univ ersity of [facility] Body height 2021-01-16 16:05:00 157.5 cm Universi ty of [facility] Body weight 2021-01-16 16:05:00 55.883 kg Universi ty of [facility] BMI 2021-01-16 16:05:00 22.53 kg/m2 Universi ty of [facility] Systolic blood 2020-10-04 16:16:00 111 mm[Hg] Univer sity of pressure [facility] Diastolic blood 2020-10-04 16:16:00 65 mm[Hg] Unive rsity of pressure [facility] Heart rate 2020-10-04 16:16:00 62 /min Universi ty of [facility] Body temperature 2020-10-04 16:16:00 36.94 Kandace Univ ersity of [facility] Respiratory rate 2020-10-04 16:16:00 18 /min Univ ersity of [facility] Body height 2020-10-04 16:16:00 157.5 cm Universi ty of [place] [facility] Body weight 2020-10-04 16:16:00 55.339 kg Universi ty of [place] [facility] BMI 2020-10-04 16:16:00 22.31 kg/m2 Universi ty of [facility] Systolic blood 2020-08-23 19:15:00 114 mm[Hg] Univer sity of pressure [facility] Diastolic blood 2020-08-23 19:15:00 62 mm[Hg] Unive rsity of pressure [facility] Heart rate 2020-08-23 19:15:00 95 /min Universi ty of [facility] Body temperature 2020-08-23 19:15:00 36.83 Kandace Univ ersity of [facility] Respiratory rate 2020-08-23 19:15:00 18 /min Univ ersity of [facility] Body height 2020-08-23 19:15:00 157.5 cm [facility]i ty [facility] [place] [facility] Body weight 2020-08-23 19:15:00 58.423 kg [facility]i ty [facility] [place] [facility] BMI 2020-08-23 19:15:00 23.56 kg/m2 Universi ty of [facility] Systolic blood 2020-06-18 15:25:00 123 mm[Hg] Univer sity of pressure [facility] Diastolic blood 2020-06-18 15:25:00 84 mm[Hg] Unive rsity of pressure [facility] Heart rate 2020-06-18 15:25:00 90 /min Universi ty of [facility] Body temperature 2020-06-18 15:25:00 36.72 Kandace Univ ersity of [facility] Respiratory rate 2020-06-18 15:25:00 18 /min Univ ersity of [facility] Body height 2020-06-18 15:25:00 157.5 cm [facility]i ty [facility] Body weight 2020-06-18 15:25:00 68.493 kg Universi ty [facility] [place] [facility] BMI 2020-06-18 15:25:00 27.62 kg/m2 Universi ty of [facility] Systolic blood 2020-06-15 12:45:00 121 mm[Hg] Univer sity of pressure [facility] Diastolic blood 2020-06-15 12:45:00 79 mm[Hg] Unive rsity of pressure [facility] Heart rate 2020-06-15 12:45:00 93 /min Universi ty of [facility] Body temperature 2020-06-15 12:45:00 36.72 Kandace Univ ersity of [facility] Respiratory rate 2020-06-15 12:45:00 18 /min [facility] Oxygen saturation in 2020-06-15 05:00:00 100 /min University of Arterial blood by [facility] Pulse oximetry Branch Body height 2020-06-14 09:19:00 157.5 cm Universi ty of [facility] Body weight 2020-06-14 09:19:00 74.106 kg Universi ty of [facility] BMI 2020-06-14 09:19:00 29.88 kg/m2 Universi ty of [facility] Systolic blood 2020-06-11 15:43:00 130 mm[Hg] Univer sity of pressure [facility] Diastolic blood 2020-06-11 15:43:00 86 mm[Hg] Unive rsity of pressure [facility] Heart rate 2020-06-11 15:43:00 86 /min Universi ty of [facility] Body temperature 2020-06-11 15:43:00 36.78 Kandace Univ ersity of [facility] Respiratory rate 2020-06-11 15:43:00 18 /min Univ ersity of [facility] Body height 2020-06-11 15:43:00 157.5 cm Universi ty of [facility] Body weight 2020-06-11 15:43:00 73.483 kg Universi ty of [facility] BMI 2020-06-11 15:43:00 29.63 kg/m2 Universi ty of [facility] Systolic blood 2020-06-06 20:44:00 128 mm[Hg] Univer sity of pressure [facility] Diastolic blood 2020-06-06 20:44:00 86 mm[Hg] Unive rsity of pressure [facility] Heart rate 2020-06-06 20:44:00 76 /min Universi ty of [facility] Body temperature 2020-06-06 20:44:00 36.89 Kandace Univ ersity of [facility] Respiratory rate 2020-06-06 20:44:00 18 /min Univ ersity of [facility] Body height 2020-06-06 20:44:00 157.5 cm Universi ty of [facility] Body weight 2020-06-06 20:44:00 72.576 kg Universi ty of [facility] BMI 2020-06-06 20:44:00 29.26 kg/m2 Universi ty of [facility] Systolic blood 2020-06-01 15:44:00 115 mm[Hg] Univer sity of pressure [facility] Diastolic blood 2020-06-01 15:44:00 80 mm[Hg] Unive rsity of pressure [facility] Heart rate 2020-06-01 15:44:00 76 /min Universi ty of [facility] Body temperature 2020-06-01 15:44:00 36.83 Kandace Univ ersity of [facility] Respiratory rate 2020-06-01 15:44:00 18 /min Univ ersity of [facility] Body height 2020-06-01 15:44:00 157.5 cm Universi ty of [facility] Body weight 2020-06-01 15:44:00 71.215 kg Universi ty of [facility] BMI 2020-06-01 15:44:00 28.72 kg/m2 Universi ty of [facility] Systolic blood 2020-05-24 15:20:00 113 mm[Hg] Univer sity of pressure [facility] Diastolic blood 2020-05-24 15:20:00 72 mm[Hg] Unive rsity of pressure [facility] Heart rate 2020-05-24 15:20:00 81 /min Universi ty of [facility] Body temperature 2020-05-24 15:20:00 36.67 Kandace Univ ersity of [facility] Respiratory rate 2020-05-24 15:20:00 18 /min Univ ersity of [facility] Body height 2020-05-24 15:20:00 157.5 cm Universi ty of [facility] Body weight 2020-05-24 15:20:00 71.033 kg Universi ty of [facility] BMI 2020-05-24 15:20:00 28.64 kg/m2 Universi ty of [facility] Systolic blood 2020-05-10 14:17:00 114 mm[Hg] Univer sity of pressure [facility] Diastolic blood 2020-05-10 14:17:00 73 mm[Hg] Unive rsity of pressure [facility] Heart rate 2020-05-10 14:17:00 81 /min Universi ty of [facility] Body temperature 2020-05-10 14:17:00 36.83 Kandace Univ ersity of [facility] Respiratory rate 2020-05-10 14:17:00 16 /min Univ ersity of [facility] Body height 2020-05-10 14:17:00 157.5 cm Universi ty of [facility] Body weight 2020-05-10 14:17:00 67.314 kg Universi ty of [facility] BMI 2020-05-10 14:17:00 27.14 kg/m2 Universi ty of [facility] Systolic blood 2020-04-30 04:00:00 108 mm[Hg] Univer sity of pressure [facility] Diastolic blood 2020-04-30 04:00:00 74 mm[Hg] Unive rsity of pressure [facility] Heart rate 2020-04-30 04:00:00 90 /min Universi ty of [facility] Respiratory rate 2020-04-30 04:00:00 19 /min Univ ersity of [facility] Oxygen saturation in 2020-04-30 04:00:00 99 /min University of Arterial blood by [facility] Pulse oximetry Branch Body temperature 2020-04-29 23:21:00 37.61 Kandace Univ ersity of [facility] Body height 2020-04-29 23:21:00 157.5 cm Universi ty of [facility] Body weight 2020-04-29 23:21:00 66.7 kg Universi ty of [facility] BMI 2020-04-29 23:21:00 26.90 kg/m2 Universi ty of [facility] Systolic blood 2020-03-28 16:29:00 96 mm[Hg] Univer sity of pressure [facility] Diastolic blood 2020-03-28 16:29:00 58 mm[Hg] Unive rsity of pressure [facility] Heart rate 2020-03-28 16:29:00 95 /min Universi ty of [facility] Body temperature 2020-03-28 16:29:00 37 Kandace Univ ersity of [facility] Respiratory rate 2020-03-28 16:29:00 16 /min Univ ersity of [facility] Body height 2020-03-28 16:29:00 157.5 cm Universi ty of [facility] Body weight 2020-03-28 16:29:00 62.143 kg Universi ty of [facility] BMI 2020-03-28 16:29:00 25.06 kg/m2 Universi ty of [facility] Systolic blood 2020-01-31 18:15:00 106 mm[Hg] Univer sity of pressure [facility] Diastolic blood 2020-01-31 18:15:00 65 mm[Hg] Unive rsity of pressure [facility] Heart rate 2020-01-31 18:15:00 100 /min Universi ty of [facility] Body temperature 2020-01-31 18:15:00 36.33 Kandace Univ ersity of [facility] Respiratory rate 2020-01-31 18:15:00 18 /min Univ ersity of [facility] Body height 2020-01-31 18:15:00 157.5 cm Universi ty of [facility] Body weight 2020-01-31 18:15:00 55.792 kg Universi ty of [facility] BMI 2020-01-31 18:15:00 22.50 kg/m2 Universi ty of [facility] Respiratory rate 2020-01-03 20:09:00 18 /min Univ ersity of [facility] Body height 2020-01-03 20:09:00 157.5 cm Universi ty of [facility] Systolic blood 2020-01-03 20:09:00 106 mm[Hg] Univer sity of pressure [facility] Diastolic blood 2020-01-03 20:09:00 60 mm[Hg] Unive rsity of pressure [facility] Heart rate 2020-01-03 20:09:00 57 /min Universi ty of [facility] Body temperature 2020-01-03 20:09:00 37.06 Kandace Univ ersity of [facility] Body weight 2020-01-03 20:09:00 53.524 kg Universi ty of [facility] BMI 2020-01-03 20:09:00 21.58 kg/m2 Universi ty of [facility] Systolic blood 2019-12-06 19:53:00 110 mm[Hg] Univer sity of pressure [facility] Diastolic blood 2019-12-06 19:53:00 71 mm[Hg] Unive rsity of pressure [facility] Heart rate 2019-12-06 19:53:00 91 /min Universi ty of [facility] Body temperature 2019-12-06 19:53:00 37.28 Kandace Univ ersity of [facility] Respiratory rate 2019-12-06 19:53:00 18 /min Univ ersity of [facility] Body height 2019-12-06 19:53:00 157.5 cm Universi ty of [facility] Body weight 2019-12-06 19:53:00 53.524 kg Universi ty of [facility] BMI 2019-12-06 19:53:00 21.58 kg/m2 Universi ty of [facility] Procedures Procedure Date / Time Performing Clinician Source Performed [facility] ULTRASOUND 2020-08-23 05:01:00 Doctor Unassdante, [facility] POCT TEST 2020-08-23 00:00:00 Tunde Zhu [facility] CBC WITH DIFF 2020-06-15 08:56:00 ZhuTunde [facility] o [facility] PROTEIN CREAT RATIO URINE 2020-06-14 17:10:00 Tunde Zhu Un [facility] RANDOM [facility] LACTATE DEHYDROGENASE 2020-06-14 15:16:00 ZhuNoahlondon Davila [facility] URINALYSIS 2020-06-14 15:16:00 ZhuNoahlondon Davila [place] [facility] SGOT (ASPARTATE AMINO 2020-06-14 09:31:00 Tunde Zhu [facility] TRANSFER) Medical Branch CREATININE 2020-06-14 09:31:00 ZhuNoahlondon Davila [facility] ALANINE AMINO 2020-06-14 09:31:00 Tunde Zhu [facility] TRANSFERASE(SGPT Medical Branch URIC ACID 2020-06-14 09:31:00 ZhuTunde Domo [facility] CBC WITH DIFF 2020-06-14 09:31:00 Zhu [facility] HEPATITIS B SURFACE 2020-06-14 09:31:00 Tunde Zhu [facility] ANTIGEN [facility] ADC OR ALESIA ONLY - RPR 2020-06-14 09:31:00 Tunde Zhu Un [facility] HIV 1/2 AG-AB WITH REFLEX 2020-06-14 09:31:00 Tunde Zhu [facility] HB ABO GROUPING 2020-06-14 09:25:00 Audra Tunde [facility] RHO (D) IMMUNE GLOBULIN 2020-06-14 09:25:00 Tunde Zhu [facility] CONSENT/REFUSAL FOR 2020-06-11 16:30:05 Doctor Unassigned, [facility] DIAGNOSIS AND TREATMENT [facility] ASSIGNMENT OF BENEFITS 2020-06-11 16:29:24 [facility] POCT URINALYSIS W/O 2020-06-11 00:00:00 Anabel Chapman [facility] SPECIFIC GRAVITY Medical Branch POCT URINALYSIS W/O 2020-06-06 00:00:00 Tunde Zhu [facility] SPECIFIC GRAVITY Medical Branch POCT URINALYSIS W/O 2020-06-01 15:42:00 Anabel Chapman [facility] SPECIFIC GRAVITY Medical Branch >14 WEEKS US 2020-05-24 15:46:16 Tunde Zhu [facility] DSU PRE-OP 2020-05-24 05:01:00 Doctor Unareshma, [facility] POCT URINALYSIS W/O 2020-05-24 00:00:00 Tunde Zhu [facility] SPECIFIC GRAVITY Medical Branch POCT URINALYSIS W/O 2020-05-10 14:19:00 Tunde Zhu [facility] SPECIFIC GRAVITY Medical Branch BILATERAL VENOUS DUPLEX 2020-04-30 03:24:44 Irena Brown [facility] LOWER EXTREMITY BY Medical [facility] VASCULAR LAB COMP. METABOLIC PANEL 2020-04-30 01:21:00 Irena Brown [facility] ([id number]) Medical Bolt CBC WITH DIFFERENTIAL 2020-04-30 01:21:00 Irena Brown [facility] D-DIMER 2020-04-30 01:21:00 Irena Brown [facility] URINALYSIS 2020-04-30 01:21:00 Irena Brown [facility] COVID-19 (ID NOW RAPID 2020-04-30 01:21:00 Irena Brown [facility] TESTING) Medical Branch EKG-12 LEAD 2020-04-30 00:15:11 Irena Brown [facility] ASSIGNMENT OF BENEFITS 2020-04-29 23:10:47 Doctor Unareshma, [facility] CONSENT/REFUSAL FOR 2020-04-29 23:09:19 Doctor Ralph, [facility] DIAGNOSIS AND TREATMENT [facility] TDAP (ADACEL) 2020-03-28 16:28:39 Tunde Zhu [facility] IMMUNIZATION Medical Branch GLUCOSE 1 HOUR POST 2020-03-28 16:20:00 [facility] CBC WITH DIFFERENTIAL 2020-03-28 16:20:00 [facility] AGREEMENTS AUTHORIZATIONS 2020-03-28 05:01:00 Doctor Ralph, [facility] AND IRREVOCABLE [facility] ASSIGNMENTS (FORM 2001) POCT URINALYSIS W/O 2020-03-28 00:00:00 Tunde Zhu [facility] DME/SUPPLY JUSTIFICATION 2020-03-06 05:01:00 Doctor Ralph, [facility] SECOND AND THIRD 2020-02-03 18:54:00 Anabel Chapman [facility] TRIMESTER ULTRASOUND Medical [facility] POCT URINALYSIS W/O 2020-01-31 00:00:00 Tunde Zhu [facility] AGREEMENTS AUTHORIZATIONS 2020-01-03 06:01:00 Doctor Ralph, [facility] AND IRREVOCABLE [facility] ASSIGNMENTS (FORM 2001) POCT URINALYSIS W/O 2020-01-03 00:00:00 Tunde Zhu [facility] SCANNED LAB RESULTS 2019-12-07 06:01:00 Doctor Ralph [facility] Name Medical Branch POCT URINALYSIS W/O 2019-12-06 00:00:00 Tunde Zhu [facility] Encounters Start End Encounter Admission Attending Care Care Encounter Source Date/Time Date/Time Type Type Clinicians Facility Department ID 2021-09-20 Outpatient P [facility] ROBIN [id number] Univers 07:39:45 [facility] [place] 2021-09-19 Emergency [facility] [id number] Univers 23:52:05 [facility] [place] 2022-01-16 2022-01-16 Outpatient Qi CHAPMAN [facility] [id number] Univers 10:00:00 10:00:00 ANABEL [id number] [facility] [place] 2022-01-16 2022-01-16 Outpatient Qi CHAPMAN [facility] [id number] Univers 10:00:00 10:00:00 ANABEL [facility] [place] 2021-06-29 2021-06-29 Outpatient R [facility] [id number] Univers 11:20:00 11:20:00 [id number] [facility] [place] 2021-02-12 2021-02-12 [facility] [id number] 00:00:00 00:00:00 Outreach Tray PRIMARY [id number] [facility] [id number] PAVILLION [id number] 2021-02-12 2021-02-12 Patient Ayan [facility] [id number] Univers 00:00:00 00:00:00 Outreach Tray PRIMARY [id number] i ty of [id number] [id number] [place] 2021-01-16 2021-01-16 Office Ari [facility] [id number] 09:54:49 10:24:49 Visit Anabel Leger [id number] [place] [id number] Professio [phone] [address] 2021-01-16 2021-01-16 [facility] [id number] [facility] 09:54:49 10:24:49 Visit Anabel Leger [id number] i [id number] [phone] [place] dic[address] 2021-01-16 2021-01-16 Outpatient R ARI [facility] [id number] Univers 10:00:00 10:00:00 ANABEL [id number] [facility] [place] 2021-01-16 2021-01-16 Outpatient R ARI [facility] [id number] Univers 10:00:00 10:00:00 ANABEL [facility] [place] 2020-10-08 2020-10-08 Outpatient R TUNDE ZHU [facility] [id number] Univers 10:30:00 10:30:00 [id number] [facility] 2020-10-[facility] 2020-10-08 Outpatient R TUNDE ZHU [facility] [id number] Univers 10:30:00 10:30:00 ity [facility] 2020-10-04 2020-10-04 Director Of Math 2, Rodriguez Rosalva [facility] [id number] Univers 10:43:05 10:58:05 Visit Tunde Zhu Domo Leger [id number] [id number] [phone] [place]ical nal [address] [facility] 2020-10-04 2020-10-04 Office Tunde Zhu [facility] [id number] Univers 10:05:43 10:38:37 Visit Domo Leg[place] [id number] i [place] [id number] [phone] [place] dical [address] 2020-10-04 2020-10-04 Outpatient R TUNDE ZHU [facility] [id number] 9Q-20 Univers 10:00:00 10:00:00 [id number] ity [facility] 2020-10-04 2020-10-04 Outpatient R AUDRA [facility] [id number] Univers 10:00:00 10:00:00 ity [facility] 2020-09-20 2020-09-20 [facility] [id number] 9Q-20 Univers 11:00:00 11:00:00 [id number] ity [facility] 2020-09-20 2020-09-20 Outpatient R TUNDE ZHU [facility] [id number] Univers 11:00:00 11:00:00 ity [facility] 2020-08-23 2020-08-23 Office Tunde Zhu [facility] [id number] Univers 13:27:48 14:37:47 Visit Domo Leger [id number] i [phone] [place] 134 [facility] 2020-08-23 2020-08-23 Outpatient R AUDRA [facility] [id number] 9Q-20 Univers 13:30:00 13:30:00 ity [facility] 2020-08-23 2020-08-23 Outpatient R TUNDE ZHU [facility] [id number] Univers 13:30:00 13:30:00 ity of [facility] 2020-08-23 2020-08-23 Orders Doctor STOUT 1.2.840.114 [id number] Univers 00:00:00 00:00:00 Only Unassigned, MARIA DOLORES 350.1.13.10 ity [facility] 4.2.7.2.686 [place] [phone] [address] 2020-08-03 2020-08-03 Outpatient R AUDRA TUNDE [facility] [id number] 9Q-20 Univers 09:45:00 09:45:00 [id number] ity [facility] 2020-08-03 2020-08-03 Outpatient R AUDRA [facility] [id number] Univers 09:45:00 09:45:00 ity [facility] 2020-07-16 2020-07-16 Outpatient ARI [facility] [id number] 9Q-20 Univers 16:00:00 16:00:00 ANABEL [id number] ity [facility] 2020-07-16 2020-07-16 Outpatient R ARI [facility] [id number] Univers 16:00:00 16:00:00 [facility]-06-18 2020-06-18 Nurse Nurse, [facility] 1.2.840.114 [id number] Univers 10:14:05 10:26:44 Visit Anabel Chapman 350.1.13.10 ity [facility] [place] [phone] [place] d[place] [address] 2020-06-18 2020-06-18 Outpatient R [facility] [id number] Univers 10:00:00 10:00:00 [id number] ity [facility] 2020-06-18 2020-06-18 Outpatient R [facility] [id number] Univers 10:00:00 10:00:00 ity [facility] 2020-06-14 2020-06-15 [facility] 1.2.840.114 [id number] Univers 03:50:00 17:42:00 Encounter Domo Leger 350.1.13.10 ity of [place] 4.2.7.2.686 [facility] [phone] [facility] [address] 2020-06-13 2020-06-13 Laboratory Only, Adc Test [facility] 1.2.840. 114 [id number] Univers 08:44:08 09:21:32 Only Anabel Chapman [id number] ity of [place] 4.2.7.2.686 [facility] [phone] [facility] [address] 2020-06-13 2020-06-13 Outpatient R [facility] [id number] -[id number] Univers 08:30:00 08:30:00 [id number] ity [facility] 2020-06-13 2020-06-13 Outpatient R [facility] [id number] Univers 08:30:00 08:30:00 ity [facility] 2020-06-11 2020-06-11 Routine Ari [facility] 1.2.393.661 [id number] Univers 10:36:03 11:09:13 Anabel Leger 350.1.13.10 ity of Visit [place] 4.2.7.2.686 [facility] [phone] [place] dical [address] 2020-06-11 2020-06-11 Outpatient R ARI [facility] [id number] 9Q-20 Univers 10:30:00 10:30:00 ANABEL ity [facility] 2020-06-11 2020-06-11 Outpatient R ARI [facility] [id number] Univers 10:30:00 10:30:00 ANABEL itjose [facility] 2020-06-08 2020-06-08 Outpatient R TUNDE ZHU [facility] [id number] 9Q-20 Univers 10:45:00 10:45:00 [id number] ity [facility] 2020-06-08 2020-06-08 Outpatient R TUNDE ZHU [facility] [id number] Univers 10:45:00 10:45:00 ity [facility] 2020-06-06 2020-06-06 Routine Tunde Zhu [facility] 1.2.061.322 [id number] Univers 15:32:55 15:59:30 Cam [place] 350.1.13.10 it[place] [phone] [place] dical [place] 134 [facility] 2020-06-06 2020-06-06 Outpatient R TUNDE ZHU [facility] [id number] 9Q-20 Univers 15:30:00 15:30:00 [id number] ity of [facility] 2020-06-06 2020-06-06 Outpatient R TUNDE ZHU [facility] [id number] Univers 15:30:00 15:30:00 ity of [facility] 2020-06-01 2020-06-01 [facility] 1.2.602.715 [id number] Univers 10:10:51 10:25:51 Anabel [place] 350.1.13.10 it[place] [phone] [address] 2020-06-01 2020-06-01 Outpatient R BURTHERNANRAJIV [facility] [id number] 9Q-20 Univers 10:15:00 10:15:00 ANABEL ity [facility] 2020-06-01 2020-06-01 Outpatient R ARI [facility] [id number] Univers 10:15:00 10:15:00 ANABEL ity [facility] 2020-05-24 2020-05-24 Director Of Math 2, Adc Lab [facility] 1.2.840.114 [id number] Univers 13:43:32 13:58:32 Visit Tunde Zhuton 350.1.13.10 it[place] [phone] [facility] 353 [facility] 2020-05-24 2020-05-24 Routine Tunde Zhu [facility] 1.2.861.327 [id number] Univers 09:56:30 10:43:11 Cam [place] 350.1.13.10 ity [place] [phone] [address] 2020-05-24 2020-05-24 Outpatient R TUNDE ZHU [facility] [id number] 9Q-20 Univers 10:00:00 10:00:00 ity of [facility] 2020-05-24 2020-05-24 Outpatient R TUNDE ZHU [facility] [id number] Univers 10:00:00 10:00:00 ity of [facility] 2020-05-24 2020-05-24 Orders Doctor ARGELIA 1.2.840.114 [id number] Univers 00:00:00 00:00:00 Only Unassigned, MARIA DOLORES 350.1.13.10 ity of [place] [facility] 4.2.7.2.686 [place] [phone] [address] 2020-05-15 2020-05-15 Telephone Tunde Zhu [facility] 1.2.840.114 [id number] Univers 00:00:00 00:00:00 Cam [place] 350.1.13.10 i [place] [phone] [address] 2020-05-10 2020-05-10 Routine Anabel Chapman [facility] 1.2.840.11 [id number] Univers 09:10:18 09:25:18 Tunde Zhu Domo Leger 350.1.13.10 it[place] [phone] [address] 2020-05-10 2020-05-10 Outpatient R TUNDE ZHU [facility] [id number] 9Q-20 Univers 09:15:00 09:15:00 [id number] ity of [facility] 2020-05-10 2020-05-10 Outpatient R TUNDE ZHU [facility] [id number] Univers 09:15:00 09:15:00 ity of [facility] 2020-04-30 2020-04-30 Telephone Tunde Zhu [facility] 1.2.840.114 [id number] Univers 00:00:00 00:00:00 Cam [place] 350.1.13.10 i [place] [phone] [place] dical nal 134 [facility] 2020-04-29 2020-04-29 Emergency [facility] 1.2.026.952 [id number] Univers 18:15:22 23:42:00 Irena Marichuy Leger 350.1.13.10 i [place] [phone] [address] 2020-04-26 2020-04-26 Outpatient R ARI [facility] [id number] 9Q-20 Univers 11:30:00 11:30:00 ANABEL [id number] [facility] 2020-04-26 2020-04-26 Outpatient R ARI [facility] [id number] Univers 11:30:00 11:30:00 [facility] 2020-04-26 2020-04-26 [facility]ici [facility] 1.2.840.114 [id number] Univers 08:37:16 08:52:16 ne Visit Anabel Leger 350.1.13.10 it[place] [phone] [place] dichi nal [address] [place] [address] 2020-04-23 2020-04-24 Outpatient X BRITTANIBENITO [facility] ANNA [id number] Univers 08:19:44 14:48:00 ALEXIS [facility] [place] 2020-03-28 2020-03-28 Outpatient R TUNDE ZHU [facility] [id number] 9Q-20 Univers 13:45:00 13:45:00 [facility] 2020-03-28 2020-03-28 Outpatient R TUNDE ZHU [facility] [id number] Univers 13:45:00 13:45:00 ity [facility] 2020-03-28 2020-03-28 Routine Audra Tunde [facility] 1.2.567.149 [id number] Univers 11:23:16 11:57:05 Domo Leger 350.1.13.10 ity [place] [phone] [place] dical nal [address] [place] [address] 2020-03-28 2020-03-28 Director Of Math 2, Adc Lab [facility] 1.2.840.114 [id number] Univers 10:15:02 10:30:02 Visit Anabel Chapman 350.1.13.10 it[place] [phone] [facility] 353 [facility] 2020-03-28 2020-03-28 [facility] 1.2.840.114 [id number] Univers 00:00:00 00:00:00 Cam [place] 350.1.13.10 i [place] [phone] [place] dichi nal 134 [facility] 2020-03-28 2020-03-28 Orders Doctor ARGELIA 1.2.840.114 [id number] Univers 00:00:00 00:00:00 Only Unassigned, MARIA DOLORES 350.1.13.10 ity of [place] [facility] 4.2.7.2.686 [place] [phone] [address] 2020-03-06 2020-03-06 Telephone [facility] 1.2.840.114 [id number] Univers 00:00:00 00:00:00 Cam [place] 350.1.13.10 i [place] [phone] [facility] 134 [facility] 2020-03-06 2020-03-06 Orders Doctor ARGELIA 1.2.840.114 [id number] Univers 00:00:00 00:00:00 Only Unassigned, MARIA DOLORES 350.1.13.10 ity of [place] [facility] 4.2.7.2.686 [place] [phone] [address] 2020-03-02 2020-03-02 Telephone [facility] 1.2.840.114 [id number] Univers 00:00:00 00:00:00 Domo [place] 350.1.13.10 i [place] [phone] [facility] 134 [facility] 2020-03-01 2020-03-01 Outpatient R ARI [facility] [id number] 9Q-20 Univers 14:00:00 14:00:00 ANABEL [facility] [place] 2020-03-01 2020-03-01 Outpatient R ARI [facility] [id number] Univers 14:00:00 14:00:00 ANABEL [facility] [place] 2020-03-01 2020-03-01 Telemedici Ari [facility] 1.2.840.114 [id number] Univers 08:44:16 08:59:16 ne Visit Anabel Leger 350.1.13.10 it[place] [phone] [place] dical nal [address] [place] [address] 2020-02-28 2020-02-28 Outpatient R ARI [facility] [id number] 9Q-20 Univers 13:00:00 13:00:00 ANABEL [id number] [facility] 2020-02-28 2020-02-28 Outpatient R ARI [facility] [id number] Univers 13:00:00 13:00:00 [facility] 2020-02-03 2020-02-03 Director Of Math Ultrasound, Adc [facility] 1.2 .840.114 [id number] Univers 13:05:40 13:47:31 Visit Jorge Alberto [place] 350.1.13.10 it[place] [phone] [place] dical [place]al [address] [place] [address] 2020-02-03 2020-02-03 Outpatient R [facility] [id number] Univers 13:00:00 13:00:00 [id number] [facility] 2020-02-03 2020-02-03 Outpatient R [facility] [id number] Univers 13:00:00 13:00:00 [facility] 2020-01-31 2020-01-31 Routine Tunde Zhu [facility] 1.2.278.356 [id number] Univers 13:02:32 13:38:09 Domo Leger 350.1.13.10 ity [place] [phone] [place] dical nal [address] [place] [address] 2020-01-31 2020-01-31 Outpatient R NOAH ZHUEN [facility] [id number] Univers 13:15:00 13:15:00 ity of [facility] 2020-01-03 2020-01-03 Routine Ari [facility] 1.2.854.623 [id number] Univers 13:38:20 14:44:58 Anabel Leger 350.1.13.10 ity [place] [phone] [address] 2020-01-03 2020-01-03 Director Of Math 2, Adc Lab [facility] 1.2.840.114 [id number] Univers 14:25:56 14:40:56 Visit Anabel Chapman 350.1.13.10 it[place] [phone] [facility] 353 [facility] 2020-01-03 2020-01-03 Orders Doctor ARGELIA 1.2.840.114 [id number] Univers 00:00:00 00:00:00 Only Unassigned, MARIA DOLORES 350.1.13.10 ity of [place] [facility] 4.2.7.2.686 [place] [phone] [address] 2019-12-27 2019-12-27 Telephone Noah Zhuen [facility] 1.2.840.114 [id number] Univers 00:00:00 00:00:00 Cam [place] 350.1.13.10 i [place] [phone] [address] 2019-12-19 2019-12-19 Telephone Noah Zhuen [facility] 1.2.840.114 [id number] Univers 00:00:00 00:00:00 Cam [place] 350.1.13.10 i ty [place] [phone] [address] 2019-12-15 2019-12-15 Telephone Zhu Tunde [facility] 1.2.840.114 [id number] Univers 00:00:00 00:00:00 Cam [place] 350.1.13.10 i ty [place] [phone] [place] dical nal 134 [facility] 2019-12-07 2019-12-07 Orders Doctor ARGELIA 1.2.840.114 [id number] Univers 00:00:00 00:00:00 Only Unassigned, MARIA DOLORES 350.1.13.10 ity of [place] [facility] 4.2.7.2.686 [place] [phone] [facility] [address] 2019-12-06 2019-12-06 Routine Zhu, Tunde [facility] 1.2.274.383 [id number] Univers 13:31:12 13:46:12 Cam [place] 350.1.13.10 ity [place] [phone] [place] dical nal 134 [facility] Results Test Description Test Time Test Comments Results Result Comments Source POCT TEST 2020-08-23 19:17:00 Test Item Value Reference Range Interpretation Comme nts POCT PREG (test code = 1605) Negative On board controls acceptable with C Line (test code = 3574) Yes POCT PREG LOT # (test code = 3575) POCT PREG TEST DATE (test code = 3576) Lab Interpretation (test code = 53959-4) Normal [id number] 19:17:00 Test Item Value Reference Range Interpretation Comments POCT PREG (test code = 1605) Negative On board controls acceptable with C Yes Line (test code = 3574) POCT PREG LOT # (test code = 3575) POCT PREG TEST DATE (test code = 3576) Lab Interpretation (test code = Normal 81626-5) [facility] with [id number] 09:28:00 Test Item Value Reference Range Interpretation Comments WBC (test code = See_Comment H [Automated 2290-2) message] The sy stem which generated this result transmitted reference range : 4.30 - 11.10 10*3/?L. The reference range was not used to interpret this result as normal/abnormal . RBC (test code = See_Comment L [Automated 389-8) message] The sy stem which generated this result transmitted reference range : 3.93 - 5.25 10*6/?L. The reference range was not used to interpret this result as normal/abnormal . HGB (test code = 11.4 g/dL 11.6-15 L 718-7) HCT (test code = 34.2 % 35.7-45.2 L 4544-3) MCV (test code = 88.1 fL 80.6-95.5 787-2) MCH (test code = 29.4 pg 25.9-32.8 785-6) MCHC (test code = 33.3 g/dL 31.6-35.1 786-4) RDW-SD (test code = 44.1 fL 39-49.9 54943-4) RDW-CV (test code = 14.1 % 12-15.5 788-0) PLT (test code = See_Comment L [Automated 777-3) message] The sy stem which generated this result transmitted reference range : 166 - 358 10*3/ ?L. The reference r yovany was not used to interpret this result as normal/abnormal . MPV (test code = 10.9 fL 9.5-12.9 97165-0) NRBC/100 WBC (test See_Comment [Automat ed code = 1428465771) message] The system which generated this result transmitted reference range : 0.0 - 10.0 /100 WBCs. The refer ence range was not u sed to interpret th is result as normal/abnormal . NRBC x10^3 (test code <0.01 See_Comment [Auto mated = 4404982190) message] The s ystem which generated this result transmitted reference range : 10*3/?L. The reference range was not used to interpret this result as normal/abnormal . GRAN MAT (NEUT) % 67.6 % (test code = 770-8) IMM GRAN % (test code 1.10 % = 9358889529) LYMPH % (test code = 22.1 % 736-9) MONO % (test code = 7.2 % 5905-5) EOS % (test code = 1.7 % 713-8) BASO % (test code = 0.3 % 706-2) GRAN MAT x10^3(ANC) 8.37 10*3/uL 1.88-7.09 H (test code = 1097489895) IMM GRAN x10^3 (test 0.14 10*3/uL 0-0.06 H code = 8923643230) LYMPH x10^3 (test code 2.74 10*3/uL 1.32-3.29 = 731-0) MONO x10^3 (test code 0.89 10*3/uL 0.33-0.92 = 742-7) EOS x10^3 (test code = 0.21 10*3/uL 0.03-0.39 711-2) BASO x10^3 (test code 0.04 10*3/uL 0.01-0.07 = 704-7) Lab Interpretation Abnormal (test code = 98226-8) [facility] [place] ONLY - [id number] 07:24:00 Test Item Value Reference Range Interpretation Comments RPR (Qualitative) (test code = Nonreactive Nonreactive 20486-2) Lab Interpretation (test code = Normal 74228-5) [facility] (D) IMMUNE [id number] 20:13:33 Test Item Value Reference Range Interpretation Comments RHIG CANDIDATE? No- see comment Patient i s not a (test code = candidate for R hIg- 5055) Patient is Rh Positive.Perfor med at [facility] Laboratory Services - [facility] Blood [address] [place], [place] [address]Toll Free: [phone] A No. [id number] [facility] AllenProtein CREAT Ratio Urine [id number] 18:36:00 Test Item Value Reference Range Interpretation Comments T. PROT U (test code = 2888-6) 246 mg/dL CREAT U (test code = 0698444752) 62.3 mg/dL Protein/Creatinine Ratio Urine 0.0-2.0 H (test code = 8950191132) Lab Interpretation (test code = Abnormal 21672-8) [facility] AllenHepatitis B Surface [id number] 16:41:00 Test Item Value Reference Range Interpretation Comments HBsAg Semi-Quantitative (test code = Negative Negative 5195-3) [facility] AllenUrinalysis2020-07-23 15:58:00 Test Item Value Reference Range Interpretation Comments APPEARANCE (test code = Clear Clear 1825246310) COLOR (test code = Yellow Yellow 1548090584) PH (test code = 4.8-8.0 9514875937) SP GRAVITY (test code = 1.003-1.030 6565838231) GLU U QUAL (test code = Negative Negative 7985021941) BLOOD (test code = Large Negative A 0800411901) KETONES (test code = Negative Negative 8684719503) PROTEIN (test code = 100 mg/dL Negative A 2887-8) UROBILIN (test code = 0.2 mg/dL See_Comment [Auto mated message] 3696576864) The system [employer] generated this result transmit vaughn reference range : 0-1.0 mg/dL. Th e reference range was not used to interpret this result as normal/abnormal . BILIRUBIN (test code = Negative Negative 1271407461) NITRITE (test code = Negative Negative 7573183177) LEUK WANDA (test code = Negative Negative 5559036463) RBC/HPF (test code = See_Comment H [Autom ated message] 3407716428) The system [employer] generated this result transmit vaughn reference range : 0 - 3 HPF. The refe rence range was not u sed to interpret th is result as normal/abnormal . WBC/HPF (test code = <1 See_Comment [Autom ated message] 7021049488) The system [employer] generated this result transmit vaughn reference range : 0 - 5 HPF. The refe rence range was not u sed to interpret th is result as normal/abnormal . BACTERIA (test code = Negative Negative 9793324110) Lab Interpretation (test Abnormal code = 85730-4) [facility] AllenUric Acid [id number] 15:45:00 Test Item Value Reference Range Interpretation Comments URIC ACID (test code = 2672614169) 4.3 mg/dL 2.9-6 Lab Interpretation (test code = Normal 31198-3) [facility] AllenSerum [id number] 15:45:00 Test Item Value Reference Range Interpretation Comments CREATININE (test code 0.59 mg/dL 0.5-1.04 = 3746918072) eGFR Calculation mL/min/1.73m2 (Non-) (test code = 9444631571) eGFR Calculation mL/min/1.73m2 () (test code = 8322235074) GEORGES (test code = GEORGES) Association of Glomerular Filtration Rate (GFR) and Staging of Kidney Disease* + -+ + ---+| GFR (mL/min/1.73 m2) ?| With Kidney Damage ?| ?Without Kidney Damage+ -------+ ------+ ---------+| ?>90 ?| ?Stage one ?| ? Normal ?+ --+ -+ ----+| ?60-89 ?| ?Stage two ?| ? Decreased GFR ? + -+ + ---+| ?30-59 ?| ?Stage three ?| ? Stage three ? + -+ + ---+| ?15-29 ?| ?Stage four ? | ? Stage four ?+ --+ -+ ----+| ?<15 (or dialysis) ? ?| ?Stage five ? | ? Stage five ?+ --+ -+ ----+ *Each stage assumes the associated GFR level has been in effect for at least three months. ?Stages 1 to 5, with or without kidney disease, indicate chronic kidney disease. Notes: Determination of stages one and two (with eGFR >59mL/min/1.73 m2) requires estimation of kidney damage for at least three months as defined by structural or functional abnormalities of the kidney, manifested by either:Pathological abnormalities or Markers of kidney damage (including abnormalities in the composition of the blood or urine or abnormalities in imaging tests). [facility] AllenSGOT (Asparate Amino Transfer)2020-06-14 15:45:00 Test Item Value Reference Range Interpretation Comments AST(SGOT) (test code = 6739857695) 54 U/L 13-40 H Lab Interpretation (test code = Abnormal 41550-7) [facility] AllenAlanine Amino Transferase (SGPT)2020-06-14 15:45:00 Test Item Value Reference Range Interpretation Comments ALTv (test code = 1742-6) 16 U/L 5-35 Lab Interpretation (test code = Normal 24406-9) [facility] AllenLactate [id number] 15:45:00 Test Item Value Reference Range Interpretation Comments LDH (test code = 1542718563) 352 U/L 300-600 Lab Interpretation (test code = Normal 79719-4) [facility] AllenHIV 1/2 AG-AB WITH [id number] 12:22:00 Test Item Value Reference Range Interpretation Comments HIV Negative Negative Semi-quantitative (test code = 79504-1) GEORGES (test code = Non-reactive for HIV-1 GEORGES) antigen and HIV-1/HIV-2 antibodies. ?No laboratory evidence of HIV infection. ?Repeat in 2-4 weeks if acute HIV infection is suspected. [facility] AllenType and Screen - ONCE [id number] 12:04:35 Test Item Value Reference Range Interpretation Comments ABO & RH (test code A Positive Performe d at [facility] = 20) Laboratory Serv [facility] [place] [address] Free: [phone] A No. [id number] IAT (test code = Negative Performed a t [facility] 1185) Laboratory Serv [facility] [place] [address] Free: [phone] A No. [id number] [facility] AllenCBC WITH [id number] 11:12:00 Test Item Value Reference Range Interpretation Comments WBC (test code = See_Comment H [Automated 7992-2) message] The sy stem which generated this result transmitted reference range : 4.30 - 11.10 10*3/?L. The reference range was not used to interpret this result as normal/abnormal . RBC (test code = See_Comment [Automated 896-8) message] The sy stem which generated this result transmitted reference range : 3.93 - 5.25 10*6/?L. The reference range was not used to interpret this result as normal/abnormal . HGB (test code = 12.1 g/dL 11.6-15 718-7) HCT (test code = 36.2 % 35.7-45.2 4544-3) MCV (test code = 87.4 fL 80.6-95.5 787-2) MCH (test code = 29.2 pg 25.9-32.8 785-6) MCHC (test code = 33.4 g/dL 31.6-35.1 786-4) RDW-SD (test code = 43.2 fL 39-49.9 88226-3) RDW-CV (test code = 13.7 % 12-15.5 788-0) PLT (test code = See_Comment [Automated 777-3) message] The sy stem which generated this result transmitted reference range : 166 - 358 10*3/ ?L. The reference r yovany was not used to interpret this result as normal/abnormal . MPV (test code = 11.8 fL 9.5-12.9 03072-0) NRBC/100 WBC (test See_Comment [Automat ed code = [id number]) message] The system which generated this result transmitted reference range : 0.0 - 10.0 /100 WBCs. The refer ence range was not u sed to interpret th is result as normal/abnormal . NRBC x10^3 (test code <0.01 See_Comment [Auto mated = [id number]) message] The s ystem which generated this result transmitted reference range : 10*3/?L. The reference range was not used to interpret this result as normal/abnormal . GRAN MAT (NEUT) % 66.6 % (test code = 770-8) IMM GRAN % (test code 1.30 % = 8547626482) LYMPH % (test code = 20.1 % 736-9) MONO % (test code = 9.7 % 5905-5) EOS % (test code = 1.9 % 713-8) BASO % (test code = 0.4 % 706-2) GRAN MAT x10^3(ANC) 7.41 10*3/uL 1.88-7.09 H (test code = 4424739625) IMM GRAN x10^3 (test 0.14 10*3/uL 0-0.06 H code = 3572017721) LYMPH x10^3 (test code 2.23 10*3/uL 1.32-3.29 = 731-0) MONO x10^3 (test code 1.08 10*3/uL 0.33-0.92 H = 742-7) EOS x10^3 (test code = 0.21 10*3/uL 0.03-0.39 711-2) BASO x10^3 (test code 0.04 10*3/uL 0.01-0.07 = 704-7) Lab Interpretation Abnormal (test code = 71225-5) [facility] URINALYSIS W/O SPECIFIC [id number] 15:47:00 Test Item Value Reference Range Interpretation Comments POCT PH U (test code = 3254) N/A 5-8 POCT U LEUK EST (test code = N/A Negative - Negative 3263) POCT U NIT (test code = 3262) N/A Negative - Negative POCT U PROT (test code = 3259) Negative Negative - Negative POCT U GLU (test code = 3256) Negative Negative - Negative POCT U KETONE (test code = 3258) N/A Negative - Negative POCT U BLD (test code = 3257) NA Negative - Negative [facility] URINALYSIS W/O SPECIFIC [id number] 20:46:00 Test Item Value Reference Range Interpretation Comments POCT PH U (test code = 3254) n/a 5-8 POCT U LEUK EST (test code = 3263) n/a Negative - Negative POCT U NIT (test code = 3262) n/a Negative - Negative POCT U PROT (test code = 3259) trace Negative - Negative POCT U GLU (test code = 3256) neg Negative - Negative POCT U KETONE (test code = 3258) n/a Negative - Negative POCT U BLD (test code = 3257) n/a Negative - Negative [facility] URINALYSIS W/O SPECIFIC [id number] 15:42:00 Test Item Value Reference Range Interpretation Comments POCT PH U (test code = 3254) n/a 5-8 POCT U LEUK EST (test code = 3263) n/a Negative - Negative POCT U NIT (test code = 3262) n/a Negative - Negative POCT U PROT (test code = 3259) 2+ Negative - Negative POCT U GLU (test code = 3256) neg Negative - Negative POCT U KETONE (test code = 3258) n/a Negative - Negative POCT U BLD (test code = 3257) n/a Negative - Negative [facility]>14 WEEKS US [id number] 15:46:42Limited USG for presentation: ?Cephalic Tunde Zhu MD ?05/24/2020 ?10:46 [facility] GRAVITY 2020-05-24 15:22:00 Test Item Value Reference Range Interpretation Comments POCT PH U (test code = 3254) n/a 5-8 POCT U LEUK EST (test code = 3263) n/a Negative - Negative POCT U NIT (test code = 3262) n/a Negative - Negative POCT U PROT (test code = 3259) t Negative - Negative POCT U GLU (test code = 3256) neg Negative - Negative POCT U KETONE (test code = 3258) n/a Negative - Negative POCT U BLD (test code = 3257) n/a Negative - Negative Lab Interpretation (test code = Normal 55798-9) [facility] URINALYSIS W/O SPECIFIC [id number] 14:19:00 Test Item Value Reference Range Interpretation Comments POCT PH U (test code = 3254) n/a 5-8 POCT U LEUK EST (test code = 3263) n/a Negative - Negative POCT U NIT (test code = 3262) n/a Negative - Negative POCT U PROT (test code = 3259) neg Negative - Negative POCT U GLU (test code = 3256) neg Negative - Negative POCT U KETONE (test code = 3258) n/a Negative - Negative POCT U BLD (test code = 3257) n/a Negative - Negative [facility] RAPID TEST[facility])2020-04-30 02:15:00 Test Item Value Reference Range Interpretation Comments SARS-CoV-2 Rapid ID NOW Not Detected Not Detected (test code = 17039-6) GEORGES (test code = GEORGES) ID NOW COVID-19 Assay is an isothermal nucleic acid amplification test intended for the qualitative detection of nucleic acid from SARS-CoV-2 viral RNA in nasopharyngeal (W[employer]SEM[employer]ER) specimens. It is used under Emergency Use Authorization (EUA) by FDA. The limit of detection (LOD) of the assay is 125 Genome Equivalents/mL. A positive result is indicative of the presence of SARS-CoV-2 RNA. ?Clinical correlation with patient history and other diagnostic information is necessary to determine patient infection status. A negative (Not Detected) result does not preclude SARS-CoV-2 infection. In patients with clinical symptoms and other tests that are consistent with SARS-CoV-2 infection, negative results should be treated as presumptive negative and a new specimen should be tested with alternative PCR molecular test. Invalid: Please collect a new specimen for repeat patient testing if clinically indicated. Lab Interpretation Normal (test code = 06120-7) [facility][id number] 02:07:00 Test Item Value Reference Interpretation Comments Range D-DIMER (test code = See_Comment H [Autom ated 8749487196) message] The system which generated this result transmitted reference range : <0.41 ?g/mL (FEU). The reference range was not used to interpret this result as normal/abnormal . GEORGES (test code = This test may be GEORGES) used in conjunction with a clinical pretest probability (PTP) assessment model to exclude venous thromboembolism (VTE) in patients suspected of deep venous thrombosis (DVT) and pulmonary embolism (PE) A D-Dimer value less than 0.50 ?g/ml (FEU) has a negative predicative value of 96 to 100% (95% CI)and 97 to 100% (95% CI) as an aid in the diagnosis of deep vein thrombosis (DVT) and pulmonary embolism when there is low or moderate pretest probability of PE or DVT. D-Dimer values are expressed in initial fibrinogen equivalent units (FEU)" The assay results should be used with other information, including the clinical context, in forming a diagnosis. Lab Interpretation Abnormal (test code = 57400-3) [facility]OL[facility] PAN[facility] (45376)2020-04-30 02:06:00 Test Item Value Reference Range Interpretation Comments NA (test code = 134 mmol/L 135-145 L 5208910842) K (test code = 3.9 mmol/L 3.5-5 2231762040) CL (test code = 107 mmol/L 98-108 7069721238) CO2 TOTAL (test code = 21 mmol/L 23-31 L 1889192919) AGAP (test code = 2-16 1212821356) BUN (test code = 10 mg/dL 7-23 7852899406) GLUCOSE (test code = 75 mg/dL 70-110 5755619487) CREATININE (test code = 0.54 mg/dL 0.5-1.04 4354072663) TOTAL BILI (test code = 0.3 mg/dL 0.1-1.3 0080247610) CALCIUM (test code = 9.1 mg/dL 8.6-10.6 8813373508) T PROTEIN (test code = 6.6 g/dL 6.3-8.2 8467465814) ALBUMIN (test code = 3.5 g/dL 3.5-5 3808270472) ALK PHOS (test code = 113 U/L 34-122 3250057790) ALTv (test code = 14 U/L 5-35 2-6) AST(SGOT) (test code = 19 U/L 13-40 2280521442) eGFR Calculation mL/min/1.73m2 (Non-) (test code = 8585457515) eGFR Calculation mL/min/1.73m2 () (test code = 9513197677) GEORGES (test code = GEORGES) Association of Glomerular Filtration Rate (GFR) and Staging of Kidney Disease* + --+ --+ ------+| GFR (mL/min/1.73 m2) ?| With Kidney Damage ?| ?Without Kidney Damage+ --------+ --------+ +| ?>90 ?| ?Stage one ?| ? Normal ?+ ---+ ---+ -------+| ?60-89 ?| ?Stage two ?| ? Decreased GFR ? + --+ --+ ------+| ?30-59 ?| ?Stage three ?| ? Stage three ? + --+ --+ ------+| ?15-29 ?| ?Stage four ? | ? Stage four ?+ ---+ ---+ -------+| ?<15 (or dialysis) ? ?| ?Stage five ? | ? Stage five ?+ ---+ ---+ -------+ *Each stage assumes the associated GFR level has been in effect for at least three months. ?Stages 1 to 5, with or without kidney disease, indicate chronic kidney disease. Notes: Determination of stages one and two (with eGFR >59mL/min/1.73 m2) requires estimation of kidney damage for at least three months as defined by structural or functional abnormalities of the kidney, manifested by either:Pathological abnormalities or Markers of kidney damage (including abnormalities in the composition of the blood or urine or abnormalities in imaging tests). Lab Interpretation Abnormal (test code = 64533-2) [facility]2020-[facility] 02:05:00 Test Item Value Reference Range Interpretation Comments APPEARANCE (test code = Clear Clear 7922696288) COLOR (test code = Straw Yellow A 3461548969) PH (test code = 4.8-8.0 6657351225) SP GRAVITY (test code = 1.003-1.030 7961581301) GLU U QUAL (test code = Normal Normal 7468401650) BLOOD (test code = Negative Negative 4468950048) KETONES (test code = Negative Negative 7699127733) PROTEIN (test code = Negative Negative 2887-8) UROBILIN (test code = Normal Normal 5537754683) BILIRUBIN (test code = Negative Negative 0890716982) NITRITE (test code = Negative Negative 6662659320) LEUK WANDA (test code = Negative Negative 2481123755) RBC/HPF (test code = <1 See_Comment [Autom ated message] 3988810755) The system [employer] generated this result transmitted ref erence range: 0 - 3 HP F. The reference range was not used to int erpret this result as normal/abnormal . WBC/HPF (test code = See_Comment [Autom ated message] 3596030728) The system [employer] generated this result transmitted ref erence range: 0 - 5 HP F. The reference range was not used to int erpret this result as normal/abnormal . BACTERIA (test code = Few Negative A 8990442164) SQ EPITH (test code = HPF 7970421893) Lab Interpretation (test Abnormal code = 22764-0) [facility] WITH [id number] 01:51:00 Test Item Value Reference Range Interpretation Comments WBC (test code = See_Comment H [Automated 6690-2) message] The sy stem which generated this result transmitted reference range : 4.30 - 11.10 10*3/?L. The reference range was not used to interpret this result as normal/abnormal . RBC (test code = See_Comment L [Automated 789-8) message] The sy stem which generated this result transmitted reference range : 3.93 - 5.25 10*6/?L. The reference range was not used to interpret this result as normal/abnormal . HGB (test code = 11.2 g/dL 11.6-15 L 718-7) HCT (test code = 33.2 % 35.7-45.2 L 4544-3) MCV (test code = 86.5 fL 80.6-95.5 787-2) MCH (test code = 29.2 pg 25.9-32.8 785-6) MCHC (test code = 33.7 g/dL 31.6-35.1 786-4) RDW-SD (test code = 40.6 fL 39-49.9 99968-5) RDW-CV (test code = 13.3 % 12-15.5 788-0) PLT (test code = See_Comment L [Automated 777-3) message] The sy stem which generated this result transmitted reference range : 166 - 358 10*3/ ?L. The reference r yovany was not used to interpret this result as normal/abnormal . MPV (test code = 11.3 fL 9.5-12.9 01133-9) NRBC/100 WBC (test See_Comment [Automat ed code = 6884688552) message] The system which generated this result transmitted reference range : 0.0 - 10.0 /100 WBCs. The refer ence range was not u sed to interpret th is result as normal/abnormal . NRBC x10^3 (test code <0.01 See_Comment [Auto mated = 9207706022) message] The s ystem which generated this result transmitted reference range : 10*3/?L. The reference range was not used to interpret this result as normal/abnormal . GRAN MAT (NEUT) % 82.0 % (test code = 770-8) IMM GRAN % (test code 1.20 % = 4026863148) LYMPH % (test code = 8.2 % 736-9) MONO % (test code = 7.6 % 5905-5) EOS % (test code = 0.7 % 713-8) BASO % (test code = 0.3 % 706-2) GRAN MAT x10^3(ANC) 9.43 10*3/uL 1.88-7.09 H (test code = 5554509337) IMM GRAN x10^3 (test 0.14 10*3/uL 0-0.06 H code = 4878842873) LYMPH x10^3 (test code 0.94 10*3/uL 1.32-3.29 L = 731-0) MONO x10^3 (test code 0.87 10*3/uL 0.33-0.92 = 742-7) EOS x10^3 (test code = 0.08 10*3/uL 0.03-0.39 711-2) BASO x10^3 (test code 0.04 10*3/uL 0.01-0.07 = 704-7) Lab Interpretation Abnormal (test code = 15373-3) [facility] [id number] 17:49:00 Test Item Value Reference Range Interpretation Comments GLUC 1 HR (test code = 9000497816) 121 mg/dL 120-170 Lab Interpretation (test code = Normal 19916-6) [facility] WITH [id number] 17:20:00 Test Item Value Reference Range Interpretation Comments WBC (test code = See_Comment H [Automated 7290-2) message] The sy stem which generated this result transmitted reference range : 4.30 - 11.10 10*3/?L. The reference range was not used to interpret this result as normal/abnormal . RBC (test code = See_Comment [Automated 641-8) message] The sy stem which generated this result transmitted reference range : 3.93 - 5.25 10*6/?L. The reference range was not used to interpret this result as normal/abnormal . HGB (test code = 12.2 g/dL 11.6-15 718-7) HCT (test code = 36.1 % 35.7-45.2 4544-3) MCV (test code = 86.2 fL 80.6-95.5 787-2) MCH (test code = 29.1 pg 25.9-32.8 785-6) MCHC (test code = 33.8 g/dL 31.6-35.1 786-4) RDW-SD (test code = 40.6 fL 39-49.9 41277-3) RDW-CV (test code = 13.2 % 12-15.5 788-0) PLT (test code = See_Comment [Automated 777-3) message] The sy stem which generated this result transmitted reference range : 166 - 358 10*3/ ?L. The reference r yovany was not used to interpret this result as normal/abnormal . MPV (test code = 10.8 fL 9.5-12.9 49533-4) NRBC/100 WBC (test See_Comment [Automat ed code = 7251820251) message] The system which generated this result transmitted reference range : 0.0 - 10.0 /100 WBCs. The refer ence range was not u sed to interpret th is result as normal/abnormal . NRBC x10^3 (test code <0.01 See_Comment [Auto mated = 5185289579) message] The s ystem which generated this result transmitted reference range : 10*3/?L. The reference range was not used to interpret this result as normal/abnormal . GRAN MAT (NEUT) % 76.1 % (test code = 770-8) IMM GRAN % (test code 1.30 % = 0702825870) LYMPH % (test code = 14.9 % 736-9) MONO % (test code = 6.0 % 5905-5) EOS % (test code = 1.3 % 713-8) BASO % (test code = 0.4 % 706-2) GRAN MAT x10^3(ANC) 8.92 10*3/uL 1.88-7.09 H (test code = 9539735748) IMM GRAN x10^3 (test 0.15 10*3/uL 0-0.06 H code = 5956596852) LYMPH x10^3 (test code 1.75 10*3/uL 1.32-3.29 = 731-0) MONO x10^3 (test code 0.70 10*3/uL 0.33-0.92 = 742-7) EOS x10^3 (test code = 0.15 10*3/uL 0.03-0.39 711-2) BASO x10^3 (test code 0.05 10*3/uL 0.01-0.07 = 704-7) Lab Interpretation Abnormal (test code = 23563-0) [facility] URINALYSIS W/O SPECIFIC [id number] 16:31:00 Test Item Value Reference Range Interpretation Comments POCT PH U (test code = 3254) n/a 5-8 POCT U LEUK EST (test code = 3263) n/a Negative - Negative POCT U NIT (test code = 3262) n/a Negative - Negative POCT U PROT (test code = 3259) neg Negative - Negative POCT U GLU (test code = 3256) neg Negative - Negative POCT U KETONE (test code = 3258) n/a Negative - Negative POCT U BLD (test code = 3257) n/a Negative - Negative [facility] URINALYSIS W/O SPECIFIC [id number] 18:18:00 Test Item Value Reference Range Interpretation Comments POCT PH U (test code = 3254) n/a 5-8 POCT U LEUK EST (test code = 3263) n/a Negative - Negative POCT U NIT (test code = 3262) n/a Negative - Negative POCT U PROT (test code = 3259) neg Negative - Negative POCT U GLU (test code = 3256) neg Negative - Negative POCT U KETONE (test code = 3258) n/a Negative - Negative POCT U BLD (test code = 3257) n/a Negative - Negative Lab Interpretation (test code = Normal 09397-9) [facility] URINALYSIS W/O SPECIFIC [id number] 20:11:00 Test Item Value Reference Range Interpretation Comments POCT PH U (test code = 3254) n/a 5-8 POCT U LEUK EST (test code = 3263) n/a Negative - Negative POCT U NIT (test code = 3262) n/a Negative - Negative POCT U PROT (test code = 3259) neg Negative - Negative POCT U GLU (test code = 3256) neg Negative - Negative POCT U KETONE (test code = 3258) n/a Negative - Negative POCT U BLD (test code = 3257) n/a Negative - Negative Lab Interpretation (test code = Normal 44932-1) [facility] URINALYSIS W/O SPECIFIC [id number] 20:11:00 Test Item Value Reference Range Interpretation Comments POCT PH U (test code = 3254) n/a 5-8 POCT U LEUK EST (test code = 3263) n/a Negative - Negative POCT U NIT (test code = 3262) n/a Negative - Negative POCT U PROT (test code = 3259) neg Negative - Negative POCT U GLU (test code = 3256) neg Negative - Negative POCT U KETONE (test code = 3258) n/a Negative - Negative POCT U BLD (test code = 3257) n/a Negative - Negative Lab Interpretation (test code = Normal 24451-4) [facility] URINALYSIS W/O SPECIFIC [id number] 20:11:00 Test Item Value Reference Range Interpretation Comments POCT PH U (test code = 3254) n/a 5-8 POCT U LEUK EST (test code = 3263) n/a Negative - Negative POCT U NIT (test code = 3262) n/a Negative - Negative POCT U PROT (test code = 3259) neg Negative - Negative POCT U GLU (test code = 3256) neg Negative - Negative POCT U KETONE (test code = 3258) n/a Negative - Negative POCT U BLD (test code = 3257) n/a Negative - Negative Lab Interpretation (test code = Normal 22291-3) [facility] URINALYSIS W/O SPECIFIC [id number] 19:55:00 Test Item Value Reference Range Interpretation Comments POCT PH U (test code = 3254) n/a 5-8 POCT U LEUK EST (test code = 3263) n/a Negative - Negative POCT U NIT (test code = 3262) n/a Negative - Negative POCT U PROT (test code = 3259) neg Negative - Negative POCT U GLU (test code = 3256) neg Negative - Negative POCT U KETONE (test code = 3258) n/a Negative - Negative POCT U BLD (test code = 3257) n/a Negative - Negative Lab Interpretation (test code = Normal 32605-0) [facility]
== END 2021-09-29 21:14 | disposition home or self-care (01) ==
LOC: ER 20:14
DX: S93.401A Sprain of unspecified ligament of right ankle, initial encounter (principal); W01.0XXA Fall on same level from slipping, tripping and stumbling without subsequent striking against object, initial encounter; Y92.9 Unspecified place or not applicable
CPT/HCPCS: 99284

== ENCOUNTER 2022-06-27 21:15 | Emergency (ER) | payer BC, SELFPAY ==
--- OUTSIDE RECORDS SUMMARY | 2022-06-27 21:20 | XMS REPORT | Continuity of Care Document ---
:1995 Author Organization [facility] t Address [address] [place] [address] Care Team Providers Name Role Phone KASIA ROONEY III Primary Care Physician Unavailable Anabel Gramajo PA-C Attending Clinician ANABEL GRAMAJO Attending Clinician Unavailable Tray Botello DO Attending Clinician Payers Payer Name Policy Type Policy Number Effective Date Expiration Date S ource Problems Condition Condition Condition Status Onset Resolution Last Treating Co mments Source Name Details Category Date Date Treatment Clinician Date Presence Presence Disease Active 2019-11 Unive rs of 52 mg of 52 mg 0-01 ity [place] trel-rele[place] trel-relea 00 Me dical sing sing Branch intrauteri intrauteri ne device ne device (IUD) (IUD) Chest pain Chest pain Disease Active 2019- U nivers 6- ity of 00:00: [place] 00 [facility] Abnormal Abnormal Disease Active Unive rs EKG EKG 6- ity of 00:00: [place] 00 [facility] Chronic Chronic Disease Active 2019- Univers midline midline 5-06 ity of low back low back 00:00: [place] pain pain 00 Medical without without Branch sciatica sciatica 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 Formattin g of this note might be different from the original. LSIL in 2018; need repeat pap 2019 Contracept Contracept Disease Active 2014-11 U nivers ion, ion, 0-20 ity of device device 00:00: [place] intrauteri intrauteri 00 Me dical ne ne Branch Allergies, Adverse Reactions, Alerts Allergy Allergy Status Severity Reaction(s) Onset Inactive Treating Comm ents Source Name Type Date Date Clinician NO KNOWN Drug Active Univers ALLERGIE Class ity of S [facility] Social History Social Habit Start Date Stop Date Quantity Comments Source History of 2018-02-21 Cigarette Smoker Universi ty of tobacco use 00:00:00 [facility] Exposure to Not sure [facility] SARS-CoV-2 [facility] (event) [place] Alcohol intake 2022-01-16 2022-01-16 Ex-drinker University 00:00:00 00:00:00 (finding) [facility] Tobacco Comment 2020-04-23 2020-04-23 1YR Universit y of 00:00:00 00:00:00 [facility] Tobacco use and 2019-10-27 2019-10-27 Never used Universit y of exposure 00:00:00 00:00:00 [facility] Sex Ass[birth year] Universit y of 00:00:00 00:00:00 [facility] Smoking Status Start Date Stop Date Source Former smoker 2019-10-27 00:00:00 2019-10-27 00:00:00 Universi ty of [facility] Medications Ordered Filled Start Stop Current Ordering Indication Dosage Frequency Signature Comments Components Source Medication Medication Date Date Medication? Clinician (SIG) Name Name levonorgest Yes 1{devic 1 Device Univers reL 2-24 e} by ity of (MIRENA) 20 10:06: Intrauteri [place] mcg/24 14 ne route Medical hours (5 once now. Branch yrs) 52 mg IUD Yes [id number] 1{tbl} Take 1 Univers vitamin 7-24 102 tablet by ity of w/FA tablet 00:00: mouth [place] 00 daily. [facility] Immunizations Ordered Filled Immunization Date Status Comments Sour e Immunization Name Name TDAP (ADACEL) 2020-03-28 Completed University VACCINE 00:00:00 [facility] TDAP 2015-06-27 Completed [facility] 00:00:00 [facility] Influenza Virus 2012-09-10 Completed [facility] y of Vaccine 00:00:00 [facility] Vital Signs Vital Name Observation Time Observation Value Comments Source Systolic blood 2022-01-16 16:12:00 106 mm[Hg] Univer sity of pressure [facility] Diastolic blood 2022-01-16 16:12:00 73 [facility]Hg[facility] 2022-01-16 16:12:00 87 /min [facility] Body temperature 2022-01-16 16:12:00 36.83 Kandace [facility] Respiratory rate 2022-01-16 16:12:00 18 /min [facility] Body height 2022-01-16 16:12:00 157.5 cm [facility] Body weight 2022-01-16 16:12:00 59.875 kg [facility] BMI 2022-01-16 16:12:00 24.14 kg/m2 [facility] Procedures This patient has no known procedures. Encounters Start End Encounter Admission Attending Care Care Encounter Source Date/Time Date/Time Type Type Clinicians Facility Department ID 2022-01-16 2022-01-16 Office Ari [facility] [id number] [facility] 10:00:00 10:37:12 Visit Anabel GORDILLO [id number] i [facility] [id number] Ina AGUILERA [id number] Nd dical [address] BUILDING 2022-01-16 2022-01-16 Outpatient R ARI [place] [id number] [facility] 10:00:00 10:37:12 ANABEL gonzalez [facility] 2021-02-12 2021-02-12 Patient Ayan [place]BLAKE [id number] 00:00:00 00:00:00 Outreach [facility] [place] [id number] [facility] [id number] HARI [id number] 2021-01-16 2021-01-16 Office WERO Gramajo [id number] 09:54:49 10:24:49 Visit Anabel Gordillo [id number] [facility] 4[facility]2.7.2.686 [id number] [facility] [address] [facility] Results This patient has no known results.
[2022-06-27 22:04] LABS: Urine Blood 2+ (Negative); Urine Glucose Negative (Negative); Urine Protein Negative (Negative); Urine Specific Gravity >=1.030 (1.005-1.030); Urine pH 5.5 (5.0-7.0)
[2022-06-27] MEDS ORDERED: ACETAMINOPHEN 500 MG TAB ONE (22:05)
--- NOTE | 2022-06-27 22:29 | RAD REPORT ---
EXAM DESCRIPTION: CTSpine Lumbar Wo Con06/27/2022 10:18 pm CLINICAL HISTORY: Radiculopathy COMPARISON: None TECHNIQUE: Computed axial tomography lumbar spine was obtained with coronal and sagittal reconstruct ion. All CT scans are performed using dose optimization technique as appropriate and may include automated exposure control or mA/KV adjustment according to patient size. FINDINGS: No fracture is seen. No dislocation. No high-grade central/foraminal stenosis. Small disc bulge suspected L5-S1 IMPRESSION: Negative for a lumbar fracture. No high-grade central/foraminal stenosis If patient continues to have symptoms to suggest spinal canal pathology MRI would be recommended
--- NOTE | 2022-06-27 22:52 | EDPHYS ---
Physician Documentation [facility] Name: Abebe Whitehead Age: 27 yrs Sex: Female : 1995 Arrival Date: 06/27/2022 Time: 21:18 Bed 14 Private MD: ED Physician Louie Reynolds HPI: 06/27 21:50 This 27 yrs old Female presents to ER via Ambulatory with complaints of Back mh7 Pain. 21:50 The patient presents with pain that is acute, with no known mechanism of injury, and mh7 decreased range of motion. The symptoms are located in the low back. Onset: The symptoms/episode began/occurred 1 week(s) ago. The pain radiates to the right leg and left leg. Associated signs and symptoms: Pertinent negatives: abdominal pain, chest pain, constipation, dysuria, fever, headache, hematuria, incontinence, nausea, numbness, tingling, urinary retention, vomiting, weakness. The problem was sustained from unknown cause. Modifying factors: The patient symptoms are alleviated by nothing, the patient symptoms are aggravated by movement, walking. Severity of symptoms: At their worst the symptoms were moderate, 5 day(s) ago, in the emergency department the symptoms have improved, moderately. The patient has experienced similar episodes in the past, multiple times. 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 - Social history:: Smoking status: Patient denies any tobacco usage or history of. Patient/guardian denies using alcohol, street drugs. ROS: 21:50 Constitutional: Negative for fever, chills, and weight loss, Eyes: Negative for injury, mh7 pain, redness, and discharge, ENT: Negative for injury, pain, and discharge, Neck: Negative for injury, pain, and swelling, Cardiovascular: Negative for chest pain, palpitations, and edema, Respiratory: Negative for shortness of breath, cough, wheezing, and pleuritic chest pain, Abdomen/GI: Negative for abdominal pain, nausea, vomiting, diarrhea, and constipation, : Negative for injury, bleeding, discharge, and swelling, MS/Extremity: Negative for injury and deformity, Skin: Negative for injury, rash, and discoloration, Neuro: Negative for headache, weakness, numbness, tingling, and seizure, Psych: Negative for depression, anxiety, suicide ideation, homicidal ideation, and hallucinations, Allergy/Immunology: Negative for hives, rash, and allergies, Endocrine: Negative for neck swelling, polydipsia, polyuria, polyphagia, and marked weight changes, Hematologic/Lymphatic: Negative for swollen nodes, abnormal bleeding, and unusual bruising. Exam: 21:50 Head/Face: Normocephalic, atraumatic. Eyes: Pupils equal round and reactive to light, mh7 extra-ocular motions intact. Lids and lashes normal. Conjunctiva and sclera are non-icteric and not injected. Cornea within normal limits. Periorbital areas with no swelling, redness, or edema. Neck: Trachea midline, no thyromegaly or masses palpated, and no cervical lymphadenopathy. Supple, full range of motion without nuchal rigidity, or vertebral point tenderness. No Meningismus. Chest/axilla: Normal chest wall appearance and motion. Nontender with no deformity. No lesions are appreciated. Cardiovascular: Regular rate and rhythm with a normal S1 and S2. No gallops, murmurs, or rubs. Normal PMI, no JVD. No pulse deficits. Respiratory: Lungs have equal breath sounds bilaterally, clear to auscultation and percussion. No rales, rhonchi or wheezes noted. No increased work of breathing, no retractions or nasal flaring. Abdomen/GI: Soft, non-tender, with normal bowel sounds. No distension or tympany. No guarding or rebound. No evidence of tenderness throughout. Skin: Warm, dry with normal turgor. Normal color with no rashes, no lesions, and no evidence of cellulitis. MS/ Extremity: Pulses equal, no cyanosis. Neurovascular intact. Full, normal range of motion. Psych: Awake, alert, with orientation to person, place and time. Behavior, mood, and affect are within normal limits. 21:50 Constitutional: The patient appears in no acute distress, alert, awake, uncomfortable. 21:50 Back: pain, that is moderate, of the lumbar area, ROM is painful, with all movement, normal spinal alignment noted, CVA tenderness, is absent, muscle spasm, is appreciated in the lumbar area, left low back and right low back, Straight leg raises: pain bilaterally. 21:50 Neuro: Orientation: is normal, Mentation: is normal, Memory: is normal, Cranial nerves: grossly normal, Cerebellar function: is grossly normal, Motor: is normal, Sensation: is normal, Gait: limited by pain, seizure activity, is not displayed by the patient, Abnormal movements: there are no abnormal movements. Vital Signs: 21:29 BP 114 / 77; Pulse 67; Resp 17 S; Temp 99.1(O); Pulse Ox 100% on R/A; Weight 58.97 kg lg3 (R); Height 5 ft. 2 in. (157.48 cm) (R); Pain 5/10; 21:29 Body Mass Index 23.78 (58.97 kg, 157.48 cm) lg3 MDM: 22:49 Differential diagnosis: arthritis, chronic back pain, Fracture Osteoarthritis ruptured mh7 disc, sprain, vertebral fracture. Data reviewed: vital signs, nurses notes, lab test result(s), urinalysis, UPT: negative radiologic studies, CT scan. Data interpreted: Pulse oximetry: on room air is 100 %. Interpretation: normal. Counseling: I had a detailed discussion with the patient and/or guardian regarding: the historical points, exam findings, and any diagnostic results supporting the discharge/admit diagnosis, lab results, radiology results, the need for outpatient follow up, to return to the emergency department if symptoms worsen or persist or if there are any questions or concerns that arise at home. Response to treatment: the patient's symptoms have markedly improved after treatment. 22:52 Patient medically screened. [facility] 06/27 22:04 Order name: Urine Dipstick-Ancillary; Complete Time: 22:13 [facility] 06/27 21:56 Order name: CT Lumbar Spine Wo Con; Complete Time: 22:41 [facility] 06/27 21:56 Order name: Urine Dipstick-Ancillary (obtain specimen); Complete Time: 22:03 [facility] 06/27 21:56 Order name: Urine Test (obtain specimen); Complete Time: 22:03 [facility] Administered Medications: 21:59 Drug: Tylenol 1000 mg Route: PO; ll3 23:05 Follow up: Response: No adverse reaction 3 23:05 Drug: Decadron (dexamethasone) 10 mg Route: IM; Site: right deltoid; 3 23:05 Follow up: Response: Medication administered at discharge. 3 23:05 Drug: Ibuprofen 600 mg Route: PO; 3 23:06 Follow up: Response: Medication administered at discharge. ll3 Disposition Summary: 06/27/22 22:52 Discharge Ordered Location: Home [facility] Problem: an acute exacerbation [facility] Symptoms: have improved [facility] Condition: Stable [facility] Diagnosis - Lumbago with sciatica, unspecified side [facility] - Intervertebral disc disorders with radiculopathy, lumbosacral region [facility] Followup: [facility] - With: Private Physician - When: 1 - 2 days - Reason: Worsening of condition, Recheck today's complaints, Continuance of care, Re-evaluation by your physician Followup: [facility] - With: Tray Zuniga MD - When: 2 - 3 days - Reason: Worsening of condition, Recheck today's complaints Discharge Instructions: - Discharge Summary Sheet [facility] - Sciatica, [id number] [facility] Forms: - Medication Reconciliation Form [facility] - Thank You Letter [facility] - Antibiotic Education [facility] - Prescription Opioid Use [facility] Prescriptions: - Ibuprofen 600 mg Oral Tablet - take 1 tablet by ORAL route every 8 hours As needed take with food; 15 tablet; [facility] Refills: 0, Product Selection Permitted - Cyclobenzaprine 10 mg Oral Tablet - take 1 tablet by ORAL route every 8 hours As needed; 15 tablet; Refills: 0, [facility] Product Selection Permitted - Medrol (Don) 4 mg Oral Tablets, Dose Pack - take 1 tablet by ORAL route as directed - follow package instructions; 1 [facility] packet; Refills: 0, Product Selection Permitted Signatures: Dispatcher [employer] Jeannie Dave RN RN lg3 Louie Reynolds MD MD 7 Sebastián Garrett RN RN ll3
--- NOTE | 2022-06-27 22:52 | ER ---
Nurse's Notes [facility] Name: Abebe Whitehead Age: 27 yrs Sex: Female : 1995 Arrival Date: 06/27/2022 Time: 21:18 Bed 14 Private MD: Diagnosis: Lumbago with sciatica, unspecified side;Intervertebral disc disorders with radiculopathy, lumbosacral region Presentation: 06/27 21:29 Chief complaint: Patient states: lower back pain starting 1 week ago and pain is lg3 unbearable at this point. at first it was my entire lower back and now its worse on the left side. Coronavirus screen: Client denies travel out of the [place] in the last 14 days. At this time, the client does not indicate any symptoms associated with coronavirus-19. Ebola Screen: No symptoms or risks identified at this time. Initial Sepsis Screen: Does the patient meet any 2 criteria? No. Patient's initial sepsis screen is negative. Does the patient have a suspected source of infection? No. Patient's initial sepsis screen is negative. Risk Assessment: Do you want to hurt yourself or someone else? Patient reports no desire to harm self or others. Onset of symptoms was June 20, 2022. 21:29 Method Of Arrival: Ambulatory lg3 21:29 Acuity: SHERIDAN 3 lg3 Triage Assessment: 21:31 General: Appears in no apparent distress. uncomfortable, Behavior is calm, cooperative. lg3 Pain: Complains of pain in left low back and right low back. EENT: No deficits noted. No signs and/or symptoms were reported regarding the EENT system. Neuro: No deficits noted. Level of Consciousness is awake, alert, obeys commands, Oriented to person, place, time, situation. Cardiovascular: No deficits noted. Denies chest pain, shortness of breath, Capillary refill < 3 seconds Clubbing of nail beds is absent JVD is absent Patient's skin is warm and dry. Respiratory: No deficits noted. Airway is patent Trachea midline Respiratory effort is even, unlabored, Respiratory pattern is regular, symmetrical. GI: No deficits noted. No signs and/or symptoms were reported involving the gastrointestinal system. Abdomen is flat, non-distended. : No deficits noted. No signs and/or symptoms were reported regarding the genitourinary system. Denies burning with urination, cramping urinary frequency, urgency. Derm: No deficits noted. No signs and/or symptoms reported regarding the dermatologic system. Skin is intact, is healthy with good turgor, Skin is dry, Skin temperature is warm. Musculoskeletal: Circulation, motion, and sensation intact. Range of motion: intact in all extremities, Reports pain in left low back and right low back. [employer]: 21:31 LMP 06/27/2022 lg3 Historical: - Allergies: 21:31 No Known Allergies; lg3 - Home Meds: 21:31 None [Active]; lg3 - PMHx: 21:31 None; lg3 - PSHx: 21:31 Appendectomy; lg3 - Immunization history:: Adult Immunizations up to date, Client reports having NOT received the Covid vaccine. - Social history:: Smoking status: Patient denies any tobacco usage or history of. Patient/guardian denies using alcohol, street drugs. Screenin:06 Abuse screen: Denies threats or abuse. Nutritional screening: No deficits noted. ll3 Tuberculosis screening: No symptoms or risk factors identified. Fall Risk None identified. Vital Signs: 21:29 BP 114 / 77; Pulse 67; Resp 17 S; Temp 99.1(O); Pulse Ox 100% on R/A; Weight 58.97 kg lg3 (R); Height 5 ft. 2 in. (157.48 cm) (R); Pain 5/10; 21:29 Body Mass Index 23.78 (58.97 kg, 157.48 cm) lg3 ED Course: 21:18 Patient arrived in ED. bp1 21:31 Triage completed. lg3 21:31 Arm band placed on left wrist. lg3 21:44 Louie Reynolds MD is Attending Physician. mh7 21:58 Sebastián Garrett, SUNNY is Primary Nurse. ll3 22:21 CT Lumbar Spine Wo Con In Process Unspecified. EDMS 22:50 Tray Zuniga MD is Referral Physician. 7 23:06 Patient has correct armband on for positive identification. Bed in low position. Call ll3 light in reach. Side rails up X 1. 23:06 No provider procedures requiring assistance completed. Patient did not have IV access ll3 during this emergency room visit. Administered Medications: 21:59 Drug: Tylenol 1000 mg Route: PO; 3 23:05 Follow up: Response: No adverse reaction ll3 23:05 Drug: Decadron (dexamethasone) 10 mg Route: IM; Site: right deltoid; ll3 23:05 Follow up: Response: Medication administered at discharge. ll3 23:05 Drug: Ibuprofen 600 mg Route: PO; ll3 23:06 Follow up: Response: Medication administered at discharge. ll3 Medication: 23:07 VIS not applicable for this client. 3 Outcome: 22:52 Discharge ordered by . kalani 23:06 Discharged to home ambulatory. ll3 23:06 Condition: stable 23:06 Discharge instructions given to patient, Instructed on discharge instructions, follow up and referral plans. medication usage, Demonstrated understanding of instructions, follow-up care, medications, Prescriptions given X 3. 23:07 Patient left the ED. 3 Signatures: Dispatcher [employer] EDMS Jeannie Daly RN RN 3 Mandy Pelletier Maurice, MD MD 7 Sebastián Garrett RN RN 3
[2022-06-27] MEDS ORDERED: IBUPROFEN 200 MG TAB PO ONE (23:07)
[2022-06-27] MEDS ORDERED: dexAMETHasone 10 MG/ML VIAL ONE (23:07)
[2022-06-28 02:12] VITALS: TEMP 97.7
[2022-06-28 02:16] VITALS: BP 142/64; O2SAT 96
== END 2022-06-27 23:07 | disposition home or self-care (01) ==
LOC: ER 21:15
DX: M54.40 Lumbago with sciatica, unspecified side (principal)
CPT/HCPCS: 72131; 81003; 96372; 99283; J1100